=== PATIENT | male | born 1965 | race Two or more races ===

== ENCOUNTER 2020-07-28 16:42 | Emergency (ER) | payer OTHER ==
[~2020-07-28] VITALS: Ht 172.7 cm; Wt 81.0 kg
[2020-07-28 17:27] LABS: CLARITY,URINE SLIGHTLY CLOUDY (Clear); COLOR,URINE YELLOW (Yellow); GLUCOSE, URINE NEGATIVE (Neg); KETONES,URINE NEGATIVE (Neg); LEUKOCYTE ESTERASE ,URINE NEGATIVE (Neg); NITRITES, URINE NEGATIVE (Neg); OCCULT BLOOD,URINE NEGATIVE (Neg); PROTEIN,URINE 30 mg/dl (Neg); UROBILINOGEN,URINE 0.2 E.U/dL (0.2-1.0)
[2020-07-28 17:28] LABS: UA COLLECTION TYPE CLN CATCH MIDSTREAM
[2020-07-28 17:38] LABS: HYALINE CASTS 0-3 /LPF (NEGATIVE); SQUAMOUS EPITHELIAL CELL,UR FEW /LPF (FEW)
[2020-07-28 17:40] LABS: BACTERIA,URINE FEW /HPF (Neg); RBC,URINE 0-2 /HPF (0-2)
[2020-07-28 17:41] LABS: CAL OXALATE CRYSTALS 2+ /HPF (NEGATIVE); MUCUS STRANDS MANY /LPF (Neg); TRANSITIONAL EPI CELLS,URINE FEW /HPF
[2020-07-28 18:00] LABS: BASOPHILS % (AUTO) 0.4 % (0-1); EOSINOPHILS # (AUTO) 0.2 X10'3 (0-0.9); EOSINOPHILS % (AUTO) 2.7 % (0-6); HEMATOCRIT 41.9 % (42.0-52.0); HEMOGLOBIN 14.1 g/dl (14.0-17.9); LYMPHOCYTES # (AUTO) 1.6 X10'3 (1.1-4.8); LYMPHOCYTES % (AUTO) 19.4 % (21-51); MEAN CORPUSCULAR HEMOGLOBIN 32.9 PG (27.0-31.0); MEAN CORPUSCULAR HGB CONC 33.7 g/dL (33.0-36.5); MEAN CORPUSCULAR VOLUME 97.6 FL (78-98); MEAN PLATELET VOLUME 7.6 FL (7.4-10.4); MONOCYTES # (AUTO) 0.5 X10'3 (0-0.9); MONOCYTES % (AUTO) 6.5 % (2-12); NEUTROPHILS # (AUTO) 5.9 X10'3 (1.8-7.7); PLATELET COUNT 308 X10'3 (140-440); RED BLOOD COUNT 4.29 X10'6 (4.70-6.10); RED CELL DISTRIBUTION WIDTH 13.7 % (11.5-14.5); WHITE BLOOD COUNT 8.3 X10'3 (4.5-11.0)
[2020-07-28 18:21] LABS: ALANINE AMINOTRANSFERASE 23 U/L (12-78); ALBUMIN 3.7 G/DL (3.4-5.0); ALKALINE PHOSPHATASE 81 IU/L (46-116); ANION GAP 10 (8-16); ASPARTATE AMINO TRANSFERASE 16 U/L (10-37); BILIRUBIN,TOTAL 0.2 MG/DL (0.1-1.0); BLOOD UREA NITROGEN 23 MG/DL (7-18); BUN/CREATININE RATIO 28.8 (5.4-32.0); CALCIUM 8.9 MG/DL (8.5-10.1); CHLORIDE 106 MMOL/L (99-107); GLUCOSE 97 MG/DL (70-104); LIPASE 83 U/L (73-393); POTASSIUM 3.7 MMOL/L (3.5-5.1); SODIUM 144 MMOL/L (135-145); TOTAL CARBON DIOXIDE 28.2 MMOL/L (24-32); TOTAL PROTEIN 7.5 G/DL (6.4-8.2); eGFR > 90 ML/MIN
[2020-07-28] MEDS ORDERED: CefTRIAXone 250MG IM Kit w/LIDOcaine IM ONE (19:30)
[2020-07-28] MEDS ORDERED: azithromycin 250mg tablet PO ONE (19:30)
[2020-07-28] MEDS ORDERED: LEVO500T89 PO (19:38)
[2020-07-28 20:13] VITALS: BP 138/76
== END 2020-07-28 20:05 | disposition home or self-care (01) ==
LOC: ER 16:43
DX: N45.1 Epididymitis (principal); N50.812 Left testicular pain; R39.15 Urgency of urination; F17.200 Nicotine dependence, unspecified, uncomplicated; F15.90 Other stimulant use, unspecified, uncomplicated; Z72.89 Other problems related to lifestyle; Z60.2 Problems related to living alone; Z79.2 Long term (current) use of antibiotics
CPT/HCPCS: 36415; 76870; 80053; 81001; 83690; 85025; 86592; 87088; 87491; 87591; 93976; 96372; 99284; J0696

== ENCOUNTER 2020-08-26 15:04 | Emergency (ER) | payer OTHER ==
[~2020-08-26] VITALS: Ht 172.7 cm; Wt 86.4 kg
[2020-08-26] MEDS ORDERED: DOXYCYCLINE 100MG CAPSULE PO STA (17:01)
[2020-08-26] MEDS ORDERED: NAPR-56 PO (17:01)
[2020-08-26] MEDS ORDERED: DOXY150T8 PO (17:01)
[2020-08-26] MEDS ORDERED: naproxen 500mg tablet PO ONE (17:05)
[2020-08-26 17:17] LABS: CLARITY,URINE CLEAR (Clear); COLOR,URINE YELLOW (Yellow); GLUCOSE, URINE NEGATIVE (Neg); KETONES,URINE NEGATIVE (Neg); LEUKOCYTE ESTERASE ,URINE NEGATIVE (Neg); NITRITES, URINE NEGATIVE (Neg); OCCULT BLOOD,URINE SMALL (Neg); PROTEIN,URINE TRACE mg/dl (Neg); UROBILINOGEN,URINE 0.2 E.U/dL (0.2-1.0)
[2020-08-26 17:19] LABS: UA COLLECTION TYPE VOIDED
[2020-08-26 17:22] LABS: BACTERIA,URINE NONE SEEN /HPF (Neg); MUCUS STRANDS NONE SEEN /LPF (Neg); RBC,URINE 0-2 /HPF (0-2); SQUAMOUS EPITHELIAL CELL,UR NONE SEEN /LPF (FEW); WBC,URINE 0-4 /HPF (0-4)
[2020-08-26 17:23] LABS: CAL OXALATE CRYSTALS 2+ /HPF (NEGATIVE)
[2020-08-26 18:01] VITALS: BP 158/100
== END 2020-08-26 18:04 | disposition home or self-care (01) ==
LOC: ER 15:05
DX: N45.2 Orchitis (principal); F15.10 Other stimulant abuse, uncomplicated; Z79.899 Other long term (current) drug therapy
CPT/HCPCS: 76870; 81001; 93976; 99284

== ENCOUNTER 2021-11-08 15:40 | Inpatient (IN) | payer MEDICARE ==
[~2021-11-08] VITALS: Ht 175.3 cm; Wt 89.0 kg
[2021-11-08 16:33] LABS: BASOPHILS # (AUTO) 0.1 X10'3 (0-0.2); BASOPHILS % (AUTO) 1.5 % (0-1); EOSINOPHILS # (AUTO) 0.1 X10'3 (0-0.9); EOSINOPHILS % (AUTO) 0.9 % (0-6); HEMATOCRIT 38.7 % (42.0-52.0); HEMOGLOBIN 12.7 g/dl (14.0-17.9); LYMPHOCYTES # (AUTO) 1.2 X10'3 (1.1-4.8); LYMPHOCYTES % (AUTO) 13.7 % (21-51); MEAN CORPUSCULAR HEMOGLOBIN 30.8 PG (27.0-31.0); MEAN CORPUSCULAR HGB CONC 32.7 g/dL (33.0-36.5); MEAN CORPUSCULAR VOLUME 93.9 FL (78-98); MEAN PLATELET VOLUME 7.9 FL (7.4-10.4); MONOCYTES # (AUTO) 0.8 X10'3 (0-0.9); NEUTROPHILS # (AUTO) 6.7 X10'3 (1.8-7.7); NEUTROPHILS % (AUTO) 74.9 % (42-75); PLATELET COUNT 476 X10'3 (140-440); RED BLOOD COUNT 4.12 X10'6 (4.70-6.10); RED CELL DISTRIBUTION WIDTH 15.3 % (11.5-14.5)
[2021-11-08 16:46] LABS: ALANINE AMINOTRANSFERASE 26 U/L (12-78); ALBUMIN 2.2 G/DL (3.4-5.0); ALBUMIN/GLOBULIN RATIO 0.4 (1.1-1.5); ALKALINE PHOSPHATASE 102 IU/L (46-116); ANION GAP 7 (8-16); ASPARTATE AMINO TRANSFERASE 26 U/L (10-37); BILIRUBIN,TOTAL 0.5 MG/DL (0.1-1.0); BLOOD UREA NITROGEN 26 MG/DL (7-18); BUN/CREATININE RATIO 21.1 (5.4-32.0); CALCIUM 8.6 MG/DL (8.5-10.1); CHLORIDE 104 MMOL/L (99-107); CREATININE 1.23 MG/DL (0.60-1.10); GLUCOSE 161 MG/DL (70-104); POTASSIUM 3.6 MMOL/L (3.5-5.1); SODIUM 138 MMOL/L (135-145); eGFR 61 ML/MIN
[2021-11-08] MEDS ORDERED: furosemide 10 MG/1 ML 10ml inj IV ONE (18:15)
[2021-11-08] MEDS ORDERED: CefTRIAXone 2gm/D5W 50ml BAG 50 ML IV ONE (18:25)
[2021-11-08] MEDS ORDERED: normal saline 1000ML IV soln IV ONE (18:25)
--- NOTE | 2021-11-08 19:17 | NUR ---
consulted dr welsh regarding harris order. pt is able to get up to restroom and urinate well. per dr welsh, ok to d/c the harris order.
[2021-11-08 19:24] LABS: CLARITY,URINE SLIGHTLY CLOUDY (Clear); GLUCOSE, URINE 100 mg/dl (Neg); KETONES,URINE TRACE mg/dl (Neg); LEUKOCYTE ESTERASE ,URINE NEGATIVE (Neg); NITRITES, URINE NEGATIVE (Neg); OCCULT BLOOD,URINE NEGATIVE (Neg); PROTEIN,URINE 100 mg/dl (Neg); UROBILINOGEN,URINE >=8.0 E.U/dL (0.2-1.0)
[2021-11-08 19:30] LABS: COLOR,URINE DARK YELLOW (Yellow); UA COLLECTION TYPE CLN CATCH MIDSTREAM
[2021-11-08 19:33] LABS: MUCUS STRANDS MANY /LPF (Neg); SQUAMOUS EPITHELIAL CELL,UR FEW /LPF (FEW)
[2021-11-08 19:38] LABS: RENAL CELLS, URINE FEW /HPF
[2021-11-08 19:39] LABS: BACTERIA,URINE FEW /HPF (Neg); RBC,URINE 0-2 /HPF (0-2)
[2021-11-08] MEDS ORDERED: potassium CL 10mEq/100ml bag 100 ML IV PRN (21:35)
[2021-11-08] MEDS ORDERED: ondansetron/PF 4mg/2ml inj IV PRN (21:35)
[2021-11-08] MEDS ORDERED: magnesium 4gm in 100ml NS 100 ML IV PRN (21:35)
[2021-11-08] MEDS ORDERED: magnesium 2GM in 50ml NS 50 ML IV PRN (21:35)
[2021-11-08] MEDS ORDERED: potassium Cl 20 mEq SR tablet PO PRN ×2 (21:35)
[2021-11-08] MEDS ORDERED: magnesium Cl slow-release 64mg tablet PO PRN (21:35)
[2021-11-08] MEDS ORDERED: PERFLUTREN PROTEIN-A MICROSPHR (Optison) 0.22 MG/ML 3ML VIAL IV PRN (21:35)
[2021-11-08] MEDS ORDERED: ondansetron 4mg rapidly disintigrating tab PO PRN (21:35)
--- NOTE | 2021-11-08 21:51 | NUR ---
After Dr Carey left room, patient stated that he changed his mind about not wanting to be intubated as he had told Dr carey. Pt states he wants to be a full code. Kris notified.
[2021-11-08] MEDS ORDERED: vancomycin/NS 1 GM ADD-VANTAGE 250 ML IV ONE (21:55)
[2021-11-08] MEDS ORDERED: ipratropium/albuterol 3ml nebule NEB PRN (22:05)
[2021-11-09] VITALS (8 sets, daily range): BP systolic 104–125; BP diastolic 56–86
[2021-11-09] MEDS ORDERED: NO HOME MEDS (02:11)
[2021-11-09] MEDS: acetaminophen 325mg tablet PO PRN ×3 (05:54→23:39)
--- NOTE | 2021-11-09 06:03 | NUR ---
PT RECEIVED FROM ED VIA [facility], PT HAS NO MEDICAL HISTORY. NO ACUTE DISTRESS NOTED AT THIS TIME. RESP ARE LABORED. PT. CURRENTLY ON HIGH FLOW BNC @ 15L/M. NO COMPLAINTS AT THIS TIME, CALL LIGHT WITHIN REACH.
[2021-11-09 06:18] LABS: BASOPHILS # (AUTO) 0.1 X10'3 (0-0.2); BASOPHILS % (AUTO) 0.8 % (0-1); EOSINOPHILS # (AUTO) 0.2 X10'3 (0-0.9); EOSINOPHILS % (AUTO) 1.8 % (0-6); HEMATOCRIT 36.2 % (42.0-52.0); HEMOGLOBIN 11.7 g/dl (14.0-17.9); LYMPHOCYTES % (AUTO) 10.2 % (21-51); MEAN CORPUSCULAR HEMOGLOBIN 30.6 PG (27.0-31.0); MEAN CORPUSCULAR HGB CONC 32.3 g/dL (33.0-36.5); MEAN CORPUSCULAR VOLUME 94.5 FL (78-98); MEAN PLATELET VOLUME 8.2 FL (7.4-10.4); MONOCYTES # (AUTO) 0.8 X10'3 (0-0.9); MONOCYTES % (AUTO) 8.3 % (2-12); NEUTROPHILS # (AUTO) 7.9 X10'3 (1.8-7.7); NEUTROPHILS % (AUTO) 78.9 % (42-75); PLATELET COUNT 432 X10'3 (140-440); RED BLOOD COUNT 3.83 X10'6 (4.70-6.10); RED CELL DISTRIBUTION WIDTH 15.2 % (11.5-14.5)
[2021-11-09 06:36] LABS: ANION GAP 8 (8-16); BLOOD UREA NITROGEN 18 MG/DL (7-18); BUN/CREATININE RATIO 31.6 (5.4-32.0); CALCIUM 7.7 MG/DL (8.5-10.1); CHLORIDE 108 MMOL/L (99-107); CREATININE 0.57 MG/DL (0.60-1.10); GLUCOSE 93 MG/DL (70-104); MAGNESIUM 2.4 MG/DL (1.5-2.4); SODIUM 141 MMOL/L (135-145); TOTAL CARBON DIOXIDE 25.5 MMOL/L (24-32); eGFR > 90 ML/MIN
[2021-11-09] MEDS: K and/or MAG REPLACEMENT MC SCH ×3 (08:00→20:00)
[2021-11-09] MEDS: guaiFENesin ER 600mg tablet PO SCH ×2 (08:00→19:31)
[2021-11-09] MEDS ORDERED: VANCOMYCIN 1GM/200ML IVPB 200 ML IV SCH (08:00)
[2021-11-09] MEDS ORDERED: azithromycin/NS 500mg/250ml 250 ML IV ONE (09:45)
[2021-11-09] MEDS: piperacillin/tazo 3.375gm/50ml 50 ML IV SCH ×2 (10:33→16:51)
[2021-11-09 10:38] LABS: ABG BASE EXCESS 4.9 mmol/L (-2.0-2.0); ABG HCO3 30.3 mmol/L (22.0-26.0); ABG OXYGEN SATURATION 89.7 % (94-97); ABG PCO2 (T) 48.2 mmHg (35.0-48.0); ABG PO2 (T) 58.8 mmHg (75.0-100.0); ALLEN'S TEST POSITIVE; FCOHb 0.7 % (0.0-3.9); FLOW 15 L/min; FMetHb 0.3 % (0.0-1.5); FO2Hb 88.8 % (94-97); TOTAL HEMOGLOBIN 12.4 G/dl (14.0-18.0)
[2021-11-09 10:51] LABS: APTT 26 SECONDS (22-32)
[2021-11-09] MEDS ORDERED: iohexol 350MG/ML 100ml bottle IV ONE (11:42)
[2021-11-09] MEDS ORDERED: heparin 10,000 units/1 ML INJ IV ONE (16:00)
[2021-11-09] MEDS: heparin 25,000 UNIT/250ml bag 250 ML IV SCH (16:59)
[2021-11-09] MEDS: VANCOmycin 1250MG/NS 250ml Bag 250 ML IV SCH (19:40)
[2021-11-09 23:15] LABS: APTT 27 SECONDS (22-32)
[2021-11-10] VITALS (8 sets, daily range): BP systolic 110–126; BP diastolic 50–79
[2021-11-10] MEDS: heparin 10,000 units/1 ML INJ IV PRN ×2 (01:20→10:54)
[2021-11-10] MEDS: piperacillin/tazo 3.375gm/50ml 50 ML IV SCH ×3 (03:17→17:27)
[2021-11-10] MEDS: K and/or MAG REPLACEMENT MC SCH ×2 (08:00→20:00)
[2021-11-10] MEDS: guaiFENesin ER 600mg tablet PO SCH ×2 (08:10→19:14)
[2021-11-10] MEDS: heparin 25,000 UNIT/250ml bag 250 ML IV SCH (08:10)
[2021-11-10] MEDS: azithromycin/NS 500mg/250ml 250 ML IV SCH (08:55)
[2021-11-10 09:52] LABS: BASOPHILS % (AUTO) 0.5 % (0-1); EOSINOPHILS # (AUTO) 0.3 X10'3 (0-0.9); EOSINOPHILS % (AUTO) 3.1 % (0-6); HEMATOCRIT 36.4 % (42.0-52.0); HEMOGLOBIN 11.6 g/dl (14.0-17.9); LYMPHOCYTES # (AUTO) 1.1 X10'3 (1.1-4.8); LYMPHOCYTES % (AUTO) 12.5 % (21-51); MEAN CORPUSCULAR HEMOGLOBIN 30.1 PG (27.0-31.0); MEAN CORPUSCULAR HGB CONC 31.8 g/dL (33.0-36.5); MEAN CORPUSCULAR VOLUME 94.6 FL (78-98); MEAN PLATELET VOLUME 8.2 FL (7.4-10.4); MONOCYTES # (AUTO) 0.6 X10'3 (0-0.9); MONOCYTES % (AUTO) 6.5 % (2-12); NEUTROPHILS # (AUTO) 6.8 X10'3 (1.8-7.7); NEUTROPHILS % (AUTO) 77.4 % (42-75); PLATELET COUNT 409 X10'3 (140-440); RED BLOOD COUNT 3.85 X10'6 (4.70-6.10); RED CELL DISTRIBUTION WIDTH 15.8 % (11.5-14.5); WHITE BLOOD COUNT 8.8 X10'3 (4.5-11.0)
[2021-11-10 10:22] LABS: ALBUMIN 1.9 G/DL (3.4-5.0); ANION GAP 8 (8-16); BLOOD UREA NITROGEN 9 MG/DL (7-18); CHLORIDE 104 MMOL/L (99-107); CREATININE 0.69 MG/DL (0.60-1.10); GLUCOSE 107 MG/DL (70-104); MAGNESIUM 2.1 MG/DL (1.5-2.4); POTASSIUM 4.2 MMOL/L (3.5-5.1); SODIUM 143 MMOL/L (135-145); TOTAL CARBON DIOXIDE 31.3 MMOL/L (24-32); eGFR > 90 ML/MIN
[2021-11-10] MEDS: VANCOmycin 1250MG/NS 250ml Bag 250 ML IV SCH ×2 (10:56→19:15)
[2021-11-10] MEDS: acetaminophen 325mg tablet PO PRN ×2 (12:51→19:33)
[2021-11-10] MEDS ORDERED: ipratropium/albuterol 3ml nebule NEB PRN (14:35)
[2021-11-10] MEDS ORDERED: methylPREDNISolone sod succ 125mg/2ml vial IV ONE (14:35)
[2021-11-10] MEDS: guaiFENesin/DM 10ml UD oral syrup PO PRN (16:14)
[2021-11-10] MEDS: ipratropium/albuterol 3ml nebule NEB SCH ×2 (16:18→20:30)
[2021-11-10] MEDS: methylPREDNISolone sod succ 125mg/2ml vial IV SCH (19:15)
[2021-11-11] VITALS (8 sets, daily range): BP systolic 115–137; BP diastolic 61–84
[2021-11-11] MEDS: ipratropium/albuterol 3ml nebule NEB SCH ×6 (00:15→20:56)
--- NOTE | 2021-11-11 01:34 | NUR ---
LAB JUST CALLED TO NOTIFIED THAT BLOOD IS HEMOLYZED. WAITING FOR ANOTHER LAB RESULT.
[2021-11-11] MEDS: heparin 10,000 units/1 ML INJ IV PRN (02:46)
[2021-11-11] MEDS: heparin 25,000 UNIT/250ml bag 250 ML IV SCH ×2 (02:49→13:01)
[2021-11-11] MEDS: methylPREDNISolone sod succ 125mg/2ml vial IV SCH ×4 (02:58→19:28)
[2021-11-11] MEDS: guaiFENesin/DM 10ml UD oral syrup PO PRN ×2 (06:00→15:52)
[2021-11-11] MEDS ORDERED: VANCOMYCIN LEVEL IV ONE (07:30)
[2021-11-11] MEDS: K and/or MAG REPLACEMENT MC SCH ×2 (08:00→20:00)
[2021-11-11 08:12] LABS: BASOPHILS % (AUTO) 0.2 % (0-1); EOSINOPHILS % (AUTO) 0 % (0-6); HEMOGLOBIN 12.2 g/dl (14.0-17.9); LYMPHOCYTES # (AUTO) 0.7 X10'3 (1.1-4.8); LYMPHOCYTES % (AUTO) 7.7 % (21-51); MEAN CORPUSCULAR HEMOGLOBIN 30.5 PG (27.0-31.0); MEAN CORPUSCULAR HGB CONC 32.9 g/dL (33.0-36.5); MEAN CORPUSCULAR VOLUME 92.8 FL (78-98); MEAN PLATELET VOLUME 8.1 FL (7.4-10.4); MONOCYTES # (AUTO) 0.2 X10'3 (0-0.9); MONOCYTES % (AUTO) 1.6 % (2-12); NEUTROPHILS # (AUTO) 8.7 X10'3 (1.8-7.7); NEUTROPHILS % (AUTO) 90.5 % (42-75); PLATELET COUNT 439 X10'3 (140-440); RED BLOOD COUNT 3.99 X10'6 (4.70-6.10); RED CELL DISTRIBUTION WIDTH 15.2 % (11.5-14.5); WHITE BLOOD COUNT 9.6 X10'3 (4.5-11.0)
[2021-11-11] MEDS: guaiFENesin ER 600mg tablet PO SCH ×2 (08:25→19:28)
[2021-11-11] MEDS: azithromycin/NS 500mg/250ml 250 ML IV SCH (08:25)
[2021-11-11] MEDS: VANCOmycin 1250MG/NS 250ml Bag 250 ML IV SCH (08:49)
[2021-11-11 09:02] LABS: APTT 48 SECONDS (22-32)
[2021-11-11 09:15] LABS: ANION GAP 5 (8-16); BLOOD UREA NITROGEN 12 MG/DL (7-18); BUN/CREATININE RATIO 21.1 (5.4-32.0); CALCIUM 8.5 MG/DL (8.5-10.1); CHLORIDE 104 MMOL/L (99-107); CREATININE 0.57 MG/DL (0.60-1.10); GLUCOSE 155 MG/DL (70-104); MAGNESIUM 2.5 MG/DL (1.5-2.4); POTASSIUM 4.4 MMOL/L (3.5-5.1); SODIUM 140 MMOL/L (135-145); TOTAL CARBON DIOXIDE 30.7 MMOL/L (24-32); VANCOMYCIN,TROUGH 6.8 UG/ML (6.0-14.0); eGFR > 90 ML/MIN
[2021-11-11] MEDS: acetaminophen 325mg tablet PO PRN (12:45)
[2021-11-11] MEDS: piperacillin/tazo 3.375gm/50ml 50 ML IV SCH ×3 (12:49→16:00)
[2021-11-11] MEDS: VANCOMYCIN 1GM/200ML IVPB 200 ML IV SCH (15:51)
--- NOTE | 2021-11-11 20:58 | NUR ---
ZOSYN WAS NOT ADMINISTERED AT 1600.SO THE NEXT DOSE WILL BE AT MIDNIGHT. PHARMACY NOTIFIED.
[2021-11-12] VITALS (8 sets, daily range): BP systolic 108–136; BP diastolic 57–79
[2021-11-12] MEDS: ipratropium/albuterol 3ml nebule NEB SCH ×6 (00:07→23:00)
[2021-11-12 00:48] LABS: APTT 31 SECONDS (22-32)
[2021-11-12] MEDS: heparin 10,000 units/1 ML INJ IV PRN (01:22)
[2021-11-12] MEDS: heparin 25,000 UNIT/250ml bag 250 ML IV SCH ×2 (01:31→11:48)
[2021-11-12] MEDS: acetaminophen 325mg tablet PO PRN ×3 (01:41→17:41)
--- NOTE | 2021-11-12 01:50 | NUR ---
PTT CAME BACK 31. HEPARIN WAS 2700ML/HR. SO I INCREASED IT TO FOR. NOW IT SUPPOSE TO BE 31OOML/HR. THE PUMP DOES NOT ALLOW IT TO GO HIGHER THAT 3000ML/HR. ACTUALLY THE HEPARIN IS RUNNING AT 3000ML/HR. CHARGE NURSE KOBI NOTIFIED.
[2021-11-12] MEDS: methylPREDNISolone sod succ 125mg/2ml vial IV SCH ×4 (02:00→19:54)
--- NOTE | 2021-11-12 02:00 | NUR ---
VANCO WAS NOT ADMINISTER YET. WAITING FOR ZOSYN TO FINISH AND VANCO WILL BE ADMINISTERED.
[2021-11-12] MEDS ORDERED: VANCOMYCIN LEVEL IV ONE (07:30)
[2021-11-12] MEDS: K and/or MAG REPLACEMENT MC SCH ×2 (08:00→20:00)
[2021-11-12] MEDS: guaiFENesin ER 600mg tablet PO SCH ×2 (09:21→19:53)
[2021-11-12] MEDS: piperacillin/tazo 3.375gm/50ml 50 ML IV SCH ×3 (09:21→15:49)
[2021-11-12] MEDS: azithromycin/NS 500mg/250ml 250 ML IV SCH (10:02)
[2021-11-12 10:40] LABS: BASOPHILS % (AUTO) 0.2 % (0-1); EOSINOPHILS % (AUTO) 0 % (0-6); HEMATOCRIT 36.7 % (42.0-52.0); HEMOGLOBIN 11.7 g/dl (14.0-17.9); LYMPHOCYTES # (AUTO) 1.6 X10'3 (1.1-4.8); LYMPHOCYTES % (AUTO) 8.6 % (21-51); MEAN CORPUSCULAR HEMOGLOBIN 29.6 PG (27.0-31.0); MEAN CORPUSCULAR HGB CONC 31.8 g/dL (33.0-36.5); MEAN PLATELET VOLUME 8.8 FL (7.4-10.4); MONOCYTES # (AUTO) 0.9 X10'3 (0-0.9); NEUTROPHILS # (AUTO) 15.7 X10'3 (1.8-7.7); NEUTROPHILS % (AUTO) 86.2 % (42-75); PLATELET COUNT 451 X10'3 (140-440); RED BLOOD COUNT 3.94 X10'6 (4.70-6.10); RED CELL DISTRIBUTION WIDTH 15.6 % (11.5-14.5); WHITE BLOOD COUNT 18.2 X10'3 (4.5-11.0)
[2021-11-12 10:49] LABS: APTT 64 SECONDS (22-32)
[2021-11-12 11:11] LABS: ANION GAP 4 (8-16); BLOOD UREA NITROGEN 16 MG/DL (7-18); BUN/CREATININE RATIO 23.2 (5.4-32.0); CALCIUM 8.5 MG/DL (8.5-10.1); CHLORIDE 104 MMOL/L (99-107); CREATININE 0.69 MG/DL (0.60-1.10); GLUCOSE 155 MG/DL (70-104); MAGNESIUM 2.2 MG/DL (1.5-2.4); POTASSIUM 3.5 MMOL/L (3.5-5.1); SODIUM 140 MMOL/L (135-145); TOTAL CARBON DIOXIDE 31.8 MMOL/L (24-32); VANCOMYCIN,TROUGH 4.2 UG/ML (6.0-14.0); eGFR > 90 ML/MIN
[2021-11-12] MEDS: VANCOMYCIN 1GM/200ML IVPB 200 ML IV SCH ×3 (11:41→20:00)
--- NOTE | 2021-11-12 18:10 | NUR ---
This is Enma RN taking care of patient in room 3028B. the patient is complaining of nerve pain that he has and takes gabapentin for. The gabapentin helps him. Can we order gabapentin please. EXT [id number].
--- NOTE | 2021-11-12 23:23 | NUR ---
Vanco was not administered. Pharmacy never sent medication. Called them multiple time no answer.
[2021-11-13] VITALS (8 sets, daily range): BP systolic 119–156; BP diastolic 75–91
[2021-11-13] MEDS: piperacillin/tazo 3.375gm/50ml 50 ML IV SCH ×3 (00:47→15:33)
[2021-11-13 01:18] LABS: APTT 27 SECONDS (22-32)
--- NOTE | 2021-11-13 01:54 | NUR ---
PAGER ID: [phone] MESSAGE: Moe Anderson I have pt Mohamud Vivar in room. 3028b. Ptt is 27. He was already on 3000/ml. The pump cannot go higher than 3000unit/hr. I really do not know what to do because per protocol I have to increase it to 4 unit. Ext [phone] Radha BALBUENA
--- NOTE | 2021-11-13 01:56 | NUR ---
DR Rueda called back for pt Cb Mallory. No change for the heparin.
[2021-11-13] MEDS: methylPREDNISolone sod succ 125mg/2ml vial IV SCH ×4 (02:01→19:39)
[2021-11-13] MEDS: guaiFENesin/DM 10ml UD oral syrup PO PRN ×2 (02:39→19:36)
[2021-11-13] MEDS: ipratropium/albuterol 3ml nebule NEB SCH ×5 (02:45→22:51)
[2021-11-13] MEDS: VANCOMYCIN 1GM/200ML IVPB 200 ML IV SCH ×2 (04:01→12:29)
[2021-11-13] MEDS: heparin 25,000 UNIT/250ml bag 250 ML IV SCH (05:00)
[2021-11-13] MEDS: heparin 10,000 units/1 ML INJ IV PRN ×2 (05:01→09:17)
[2021-11-13] MEDS: K and/or MAG REPLACEMENT MC SCH ×2 (08:00→20:00)
[2021-11-13] MEDS: guaiFENesin ER 600mg tablet PO SCH ×2 (08:24→19:39)
[2021-11-13] MEDS: gabapentin 100mg capsule PO SCH ×3 (08:24→20:36)
[2021-11-13 08:32] LABS: BASOPHILS # (AUTO) 0.1 X10'3 (0-0.2); BASOPHILS % (AUTO) 0.6 % (0-1); EOSINOPHILS % (AUTO) 0 % (0-6); HEMATOCRIT 36.5 % (42.0-52.0); LYMPHOCYTES # (AUTO) 0.7 X10'3 (1.1-4.8); LYMPHOCYTES % (AUTO) 4.5 % (21-51); MEAN CORPUSCULAR HEMOGLOBIN 30.3 PG (27.0-31.0); MEAN CORPUSCULAR HGB CONC 32.9 g/dL (33.0-36.5); MEAN PLATELET VOLUME 8.5 FL (7.4-10.4); MONOCYTES # (AUTO) 0.6 X10'3 (0-0.9); MONOCYTES % (AUTO) 4.1 % (2-12); NEUTROPHILS # (AUTO) 14.2 X10'3 (1.8-7.7); NEUTROPHILS % (AUTO) 90.8 % (42-75); PLATELET COUNT 511 X10'3 (140-440); RED BLOOD COUNT 3.97 X10'6 (4.70-6.10); RED CELL DISTRIBUTION WIDTH 15.4 % (11.5-14.5); WHITE BLOOD COUNT 15.7 X10'3 (4.5-11.0)
[2021-11-13 08:34] LABS: ALBUMIN 2.2 G/DL (3.4-5.0); ANION GAP 7 (8-16); BLOOD UREA NITROGEN 16 MG/DL (7-18); BUN/CREATININE RATIO 27.6 (5.4-32.0); CALCIUM 8.5 MG/DL (8.5-10.1); CHLORIDE 103 MMOL/L (99-107); CREATININE 0.58 MG/DL (0.60-1.10); GLUCOSE 134 MG/DL (70-104); SODIUM 141 MMOL/L (135-145); TOTAL CARBON DIOXIDE 30.7 MMOL/L (24-32); eGFR > 90 ML/MIN
[2021-11-13 08:35] LABS: APTT 42 SECONDS (22-32)
[2021-11-13] MEDS: azithromycin/NS 500mg/250ml 250 ML IV SCH (08:48)
--- NOTE | 2021-11-13 09:53 | NUR ---
Initial: Pt admitted w/ acute respiratory failure and bilateral PNA per EMR; currently on 30L high flow salter and non rebreather mask per documentation. Pt on Regular diet w/ 100% intake of meals meeting nutrient needs at this time. LBM 11/12. No nutrition intervention implemented at this time, will continue to monitor. Recs: 1. Continue Regular diet as tolerated 2. Bowel caer per rx 3. Weekly wts Addendum: 11/13/21 at [address] Amended: Links added.
[2021-11-13] MEDS ORDERED: VANCOMYCIN LEVEL IV ONE (11:30)
--- NOTE | 2021-11-13 18:22 | NUR ---
Problems reprioritized. Patient report given, questions answered & plan of care reviewed with Radha BALBUENA.
[2021-11-13] MEDS: enoxaparin 30mg/0.3ml syringe SUBCUT SCH (19:38)
[2021-11-13] MEDS: enoxaparin 60mg/0.6ml syringe SUBCUT SCH (19:38)
[2021-11-13] MEDS: vancomycin 1,750 MG in NS 350ml IV soln IV SCH (19:55)
[2021-11-14] MEDS: piperacillin/tazo 3.375gm/50ml 50 ML IV SCH ×3 (00:15→16:05)
[2021-11-14 02:00] VITALS: BP 132/81
[2021-11-14] MEDS: methylPREDNISolone sod succ 125mg/2ml vial IV SCH ×4 (02:23→19:28)
[2021-11-14] MEDS: ipratropium/albuterol 3ml nebule NEB SCH ×6 (03:02→22:46)
[2021-11-14 06:00] VITALS: BP 136/80
[2021-11-14] MEDS: K and/or MAG REPLACEMENT MC SCH ×2 (08:00→20:00)
[2021-11-14] MEDS: azithromycin 250mg tablet PO SCH (08:30)
[2021-11-14] MEDS: gabapentin 100mg capsule PO SCH ×3 (08:30→19:28)
[2021-11-14] MEDS: vancomycin 1,750 MG in NS 350ml IV soln IV SCH ×2 (08:30→20:00)
[2021-11-14] MEDS: guaiFENesin ER 600mg tablet PO SCH ×2 (08:30→19:28)
[2021-11-14] MEDS: enoxaparin 60mg/0.6ml syringe SUBCUT SCH ×2 (08:31→19:29)
[2021-11-14] MEDS: enoxaparin 30mg/0.3ml syringe SUBCUT SCH ×2 (08:31→19:29)
[2021-11-14 09:39] LABS: BASOPHILS # (AUTO) 0.1 X10'3 (0-0.2); BASOPHILS % (AUTO) 0.7 % (0-1); EOSINOPHILS % (AUTO) 0 % (0-6); HEMOGLOBIN 11.9 g/dl (14.0-17.9); LYMPHOCYTES # (AUTO) 1.9 X10'3 (1.1-4.8); LYMPHOCYTES % (AUTO) 12.8 % (21-51); MEAN CORPUSCULAR HEMOGLOBIN 29.7 PG (27.0-31.0); MEAN CORPUSCULAR HGB CONC 32.3 g/dL (33.0-36.5); MEAN PLATELET VOLUME 8.7 FL (7.4-10.4); MONOCYTES % (AUTO) 6.6 % (2-12); NEUTROPHILS # (AUTO) 12.1 X10'3 (1.8-7.7); NEUTROPHILS % (AUTO) 79.9 % (42-75); PLATELET COUNT 532 X10'3 (140-440); RED BLOOD COUNT 4.02 X10'6 (4.70-6.10); RED CELL DISTRIBUTION WIDTH 15.9 % (11.5-14.5); WHITE BLOOD COUNT 15.1 X10'3 (4.5-11.0)
[2021-11-14 10:16] LABS: ALANINE AMINOTRANSFERASE 45 U/L (12-78); ALBUMIN 2.1 G/DL (3.4-5.0); ALBUMIN/GLOBULIN RATIO 0.5 (1.1-1.5); ANION GAP 5 (8-16); ASPARTATE AMINO TRANSFERASE 19 U/L (10-37); BILIRUBIN,TOTAL 0.5 MG/DL (0.1-1.0); BLOOD UREA NITROGEN 14 MG/DL (7-18); BUN/CREATININE RATIO 26.9 (5.4-32.0); CALCIUM 8.4 MG/DL (8.5-10.1); CHLORIDE 104 MMOL/L (99-107); CREATININE 0.52 MG/DL (0.60-1.10); GLUCOSE 131 MG/DL (70-104); POTASSIUM 4.2 MMOL/L (3.5-5.1); SODIUM 141 MMOL/L (135-145); TOTAL CARBON DIOXIDE 32.2 MMOL/L (24-32); TOTAL PROTEIN 6.4 G/DL (6.4-8.2); eGFR > 90 ML/MIN
[2021-11-14 11:00] VITALS: BP 147/80
--- NOTE | 2021-11-14 11:00 | NUR ---
patient keeps on taking his non-rebreather mask off in rushing to be discharged, O2 sats at low 70's when this RN came to the room to get his vital signs, strongly advised no not take his non-rebreather mask off whenever he feels like it just to balderrama himself for discharge. Oxygen saturations slowly came back up to high 80's. patient verbally agrees to the said plan. will continue to monitor patient.
[2021-11-14 11:14] LABS: ALKALINE PHOSPHATASE 89 IU/L (46-116)
[2021-11-14] MEDS: guaiFENesin/DM 10ml UD oral syrup PO PRN ×2 (12:12→19:28)
--- NOTE | 2021-11-14 13:51 | NUR ---
Paged Dr. Almanzar for Anna RN regarding patient wanting to leave AMA and asking for anxiety medication. PAGER ID: [phone] MESSAGE: [phone], Cb Mallory. Patient trying to leave AMA, says hes claustrophobic and room closing in, he said he wants something for anxiety. Can we get something for anxiety? Anna U [id number].
--- NOTE | 2021-11-14 14:05 | NUR ---
This RN walked in to the patient room with the rescue nurse saying that the patient signed AMA form and that patient is leaving. Patient was already dressed up to his usual clothes, tele box unattached to patient, iv tubings were disconnected, blood back flows present to the lower half of the iv tubings, patient holding his non-rebreather mask over his nose while asking me that he needs to leave because he is claustrophobic, high flow nasal cannula on the floor, pt keeps on apologizing why he needs to go out and have fresh air. Explained to patient why he needed the oxygen and how much oxygen he is currently requiring and the big possiblity of what will happen the moment he step out of the hospital premises with no oxygen at all, patient decided to stay and wants to have something to knock him down so he cant think of being claustrophic. patient getting blue and short of breath while he was explaining. patient let this RN hook him again with the tele monitor and changed iv tubing, and hooked him back to high flow nasal cannula and nonrebreather mask both at 15L. As this RN left the room patient was calm and saturating 90%. will continue to monitor patient.
[2021-11-14 15:00] VITALS: BP 130/83
[2021-11-14 18:00] VITALS: BP 127/76
--- NOTE | 2021-11-14 18:39 | NUR ---
called report to Olga, all questions answered. patient miner pick time at 1930. will endorse to incoming RN until picked up.
--- NOTE | 2021-11-14 20:00 | NUR ---
PT DID NOT GO TO [facility] DUE TO CHANGING CONDITION. O2 SAT WAS DROPPING TO 82%. RIGHT NOW PT IS ON BIPAP AND SATURATING 92%. PARAKEET RAISER NOTIFIED AND CHARGE NURSE IS AWARE.
--- NOTE | 2021-11-14 20:00 | NUR ---
PAGER ID: [phone] MESSAGE: Good evening My name is Radha and working at [facility]. I have pt Mohamud Vivar in room 3028B. is O2 sat is going down to 82. Respiratory mention that they need an order for Bipab. Can I put the order? Radha BALBUENA
[2021-11-14 22:00] VITALS: BP 128/79
--- NOTE | 2021-11-14 22:23 | NUR ---
PT KEEP TAKING BIPAP OFF. OXYGEN KEEP DROPPING TO 84%. PT EDUCATED ABOUT CONSEQUENCES BUT STILL DO NOT LISTEN.
--- NOTE | 2021-11-14 22:46 | NUR ---
PAGER ID: [phone] MESSAGE: GOOD EVENING I'M AT [facility].I HAVE PT NAME MAGY KELLY IN ROOM 3024B THAT NEED A SLEEPING PILL.CAN I PUT AN ORDER FOR RESTORIL? NAPOLEON BALBUENA EX [id number]
[2021-11-14] MEDS ORDERED: temazepam 15mg capsule PO ONE (23:35)
[2021-11-15] VITALS (16 sets, daily range): BP systolic 76–159; BP diastolic 46–82
--- NOTE | 2021-11-15 00:05 | NUR ---
PAGER ID: [phone] MESSAGE: [facility] does have Ativan Im available. Radha BALBUENA pcu 3
[2021-11-15] MEDS ORDERED: LORazepam 2 mg/ml vial IM ONE ×2 (00:15→05:20)
--- NOTE | 2021-11-15 00:58 | NUR ---
Medication cannot administered. pt doesn't have iv and is very combative.
[2021-11-15] MEDS: methylPREDNISolone sod succ 125mg/2ml vial IV SCH ×4 (02:00→20:23)
--- NOTE | 2021-11-15 05:13 | NUR ---
PAGER ID: [phone] MESSAGE: Good mng Dr. Bermudez'm from [facility]. Pt Mohamud Vivar in room 3028 b is really combative. Even with restrain. Pt mention that he does not care if he he needs to go AMA. Radha Temlpe
--- NOTE | 2021-11-15 05:14 | NUR ---
GAMAL KELLY IS VERY COMBATIVE AND WANTED TO LEAVE AMA. DR MANAGER STUDIO IS AWARE.
--- NOTE | 2021-11-15 05:15 | NUR ---
PUBLICATIONS INSPECTOR ORDER 2MG OF ATIVAN.
[2021-11-15] MEDS: K and/or MAG REPLACEMENT MC SCH ×2 (06:30→08:00)
--- NOTE | 2021-11-15 06:50 | NUR ---
Patient in room PCU 3028B. I have received report from Radha and had the opportunity to ask questions and assume patient care.
[2021-11-15] MEDS: ipratropium/albuterol 3ml nebule NEB SCH ×5 (07:02→23:11)
--- NOTE | 2021-11-15 07:06 | NUR ---
Msg to Dr. GONZALEZ PAGER ID: [phone] MESSAGE: Pt Evelio mcfarlane rm 328B is combative. On bipap wants it off, he has restraints from last night and a sitter, they gave him Ativan last night and it didn't work. His O2 drops to 50 and 60s when mask not on. Can we get Haldol? [facility] 5894
[2021-11-15] MEDS ORDERED: VANCOMYCIN LEVEL IV ONE (07:30)
[2021-11-15] MEDS: guaiFENesin ER 600mg tablet PO SCH ×2 (08:00→20:00)
[2021-11-15] MEDS: azithromycin 250mg tablet PO SCH (08:00)
[2021-11-15] MEDS: gabapentin 100mg capsule PO SCH ×3 (08:00→20:25)
[2021-11-15] MEDS ORDERED: LORazepam 2 mg/ml vial IV ONE (08:25)
--- NOTE | 2021-11-15 08:25 | NUR ---
Resource SREE Ojeda to place ativan 2mg IV per Dr. Almanzar telephone order for patient agitation. Order placed for primary RN Tish. Ojeda U
[2021-11-15] MEDS ORDERED: haloperidol lactate 5mg/ml inj ONE (08:33)
[2021-11-15] MEDS ORDERED: haloperidol lactate 5mg/ml inj IM ONE (08:35)
[2021-11-15] MEDS ORDERED: diphenhydrAMINE 50 mg/ml inj ONE (08:43)
[2021-11-15] MEDS ORDERED: diphenhydrAMINE 50 mg/ml inj IM ONE (08:50)
[2021-11-15 08:53] LABS: BASOPHILS # (AUTO) 0.1 X10'3 (0-0.2); BASOPHILS % (AUTO) 0.6 % (0-1); EOSINOPHILS % (AUTO) 0.2 % (0-6); HEMATOCRIT 40.7 % (42.0-52.0); LYMPHOCYTES # (AUTO) 1.9 X10'3 (1.1-4.8); MEAN CORPUSCULAR HEMOGLOBIN 29.6 PG (27.0-31.0); MEAN CORPUSCULAR HGB CONC 31.9 g/dL (33.0-36.5); MEAN CORPUSCULAR VOLUME 92.8 FL (78-98); MONOCYTES # (AUTO) 1.1 X10'3 (0-0.9); MONOCYTES % (AUTO) 6.5 % (2-12); NEUTROPHILS % (AUTO) 81.7 % (42-75); PLATELET COUNT 589 X10'3 (140-440); RED BLOOD COUNT 4.39 X10'6 (4.70-6.10); WHITE BLOOD COUNT 17.1 X10'3 (4.5-11.0)
[2021-11-15 08:56] LABS: ALANINE AMINOTRANSFERASE 45 U/L (12-78); ALBUMIN 2.4 G/DL (3.4-5.0); ALBUMIN/GLOBULIN RATIO 0.5 (1.1-1.5); ASPARTATE AMINO TRANSFERASE 33 U/L (10-37); BILIRUBIN,TOTAL 0.6 MG/DL (0.1-1.0); BLOOD UREA NITROGEN 16 MG/DL (7-18); CALCIUM 8.7 MG/DL (8.5-10.1); CHLORIDE 100 MMOL/L (99-107); CREATININE 0.64 MG/DL (0.60-1.10); GLUCOSE 87 MG/DL (70-104); POTASSIUM 4.4 MMOL/L (3.5-5.1); SODIUM 139 MMOL/L (135-145); TOTAL PROTEIN 6.9 G/DL (6.4-8.2); VANCOMYCIN,TROUGH 2.6 UG/ML (6.0-14.0); eGFR > 90 ML/MIN
[2021-11-15 08:59] LABS: TOTAL CARBON DIOXIDE 29.6 MMOL/L (24-32)
--- NOTE | 2021-11-15 09:00 | NUR ---
Pt transferred to ICU gave report to Leann all questions and concerned addressed at this time.
[2021-11-15 09:01] LABS: ANION GAP 9 (8-16)
[2021-11-15] MEDS ORDERED: furosemide 40mg/4ml inj IV ONE (09:05)
[2021-11-15] MEDS: dexmedetomidine/D5W 100mL 100 ML IV SCH ×2 (09:19→15:30)
--- NOTE | 2021-11-15 09:21 | NUR ---
Pt arrived to ICU 2039 at 0905. Pt agitated, groaning, with acute respiratory distress AEB RR> 44, abd breathing accessory muscles, diaphoresis. 4 per son transferred to ICU bed. oxygen HF NC @ 15 LPM and NRB mask @ 15LPM. Charge nurse present, 3 RT, tele nurse, two techs and two ICU nurses. IV placed to Left hand #20, precedex started at 0.4 mcgs. Restraints secured. pt noticeably calming after precidex. labs ordered stat. quick skin check revealed no significant skin issues. CRM + regarding restraints to l Addendum: 11/15/21 at 0927 by Lindsey Wyatt RN restraints to BUE (soft restraints). Temp harris cath placed: 16Fr, on first try, with 35CC megan yellow urine return. continue with HOB at 35 degrees. pt continues tachypneic with accessory muscles, though improvement noted in overall agitation and combativeness. Telemetry Jia BALBUENA gave report to this nurse and Leann BALBUENA. all questions answered. safety measures in place.
--- NOTE | 2021-11-15 09:30 | NUR ---
Dr. Sidhu to see pt. new orders received new orders for labs, dilauded 1mg stat, tylenol per rectum for 38.5. discussed pt without known family.
[2021-11-15] MEDS ORDERED: acetaminophen 650mg rectal suppository RC PRN (09:45)
[2021-11-15] MEDS ORDERED: HYDROmorphone 1 mg/ml syringe IV ONE (09:45)
[2021-11-15 09:47] LABS: ABG BASE EXCESS 7.8 mmol/L (-2.0-2.0); ABG HCO3 33.8 mmol/L (22.0-26.0); ABG OXYGEN SATURATION 81.5 % (94-97); ABG PCO2 (T) 57.4 mmHg (35.0-48.0); ABG PO2 (T) 52.4 mmHg (75.0-100.0); ALLEN'S TEST POSITIVE; FCOHb 0.9 % (0.0-3.9); FLOW 30 L/min; FMetHb 0.1 % (0.0-1.5); FO2Hb 80.7 % (94-97); PATIENT TEMPERATURE 38.9; TOTAL HEMOGLOBIN 13.3 G/dl (14.0-18.0)
--- NOTE | 2021-11-15 09:53 | NUR ---
ABG analysis showed to Dr. Sidhu. RT stated that Cpap could be beneficial for the patient due to the low oxygenation and the chest xray that shows very little healthy lung field, the positive pressure could help. Dr. Sidhu agreed. RT bedside placing patient on Cpap.
[2021-11-15 10:00] LABS: BASOPHILS # (AUTO) 0.1 X10'3 (0-0.2); BASOPHILS % (AUTO) 0.7 % (0-1); EOSINOPHILS % (AUTO) 0.2 % (0-6); HEMATOCRIT 37.1 % (42.0-52.0); HEMOGLOBIN 12.2 g/dl (14.0-17.9); LYMPHOCYTES # (AUTO) 1.2 X10'3 (1.1-4.8); LYMPHOCYTES % (AUTO) 8.2 % (21-51); MEAN CORPUSCULAR HEMOGLOBIN 29.9 PG (27.0-31.0); MEAN CORPUSCULAR HGB CONC 32.7 g/dL (33.0-36.5); MEAN CORPUSCULAR VOLUME 91.4 FL (78-98); MEAN PLATELET VOLUME 8.4 FL (7.4-10.4); MONOCYTES # (AUTO) 1.1 X10'3 (0-0.9); MONOCYTES % (AUTO) 7.2 % (2-12); NEUTROPHILS # (AUTO) 12.2 X10'3 (1.8-7.7); NEUTROPHILS % (AUTO) 83.7 % (42-75); PLATELET COUNT 531 X10'3 (140-440); RED BLOOD COUNT 4.06 X10'6 (4.70-6.10); RED CELL DISTRIBUTION WIDTH 16.3 % (11.5-14.5); WHITE BLOOD COUNT 14.6 X10'3 (4.5-11.0)
[2021-11-15] MEDS ORDERED: HYDROmorphone 1 mg/ml syringe IV PRN (10:15)
[2021-11-15 10:18] LABS: APTT 26 SECONDS (22-32); D-DIMER 4.85 MG/L FEU (0-0.50)
--- NOTE | 2021-11-15 10:22 | NUR ---
Round summary: with Dr. Sidhu disucssed pt current health status, minor improvement on CPAP/precedex/dilauded. Per Dr. Sidhu, continue lovenox, attain blood cultures, urinalysis, d/x vanco, start zyvox 600mg now then BID, ensure social work coordinator on board, and add dilauded 1mg Q4 horus prn. plan: calm with meds (ie precedex), CPAP, diurese. safety measures in place. HOB remains elevated. pt tahcypnic, but in 30's now compared to 40's earlier. tylenol given DC to address temp.
[2021-11-15 10:30] LABS: ALANINE AMINOTRANSFERASE 43 U/L (12-78); ALBUMIN 2.2 G/DL (3.4-5.0); ALBUMIN/GLOBULIN RATIO 0.5 (1.1-1.5); ANION GAP 8 (8-16); ASPARTATE AMINO TRANSFERASE 34 U/L (10-37); BILIRUBIN,TOTAL 0.5 MG/DL (0.1-1.0); BLOOD UREA NITROGEN 18 MG/DL (7-18); BUN/CREATININE RATIO 27.7 (5.4-32.0); CALCIUM 8.4 MG/DL (8.5-10.1); CHLORIDE 101 MMOL/L (99-107); CREATININE 0.65 MG/DL (0.60-1.10); GLUCOSE 87 MG/DL (70-104); MAGNESIUM 2.1 MG/DL (1.5-2.4); PHOSPHORUS 3.2 MG/DL (2.3-4.5); POTASSIUM 4.1 MMOL/L (3.5-5.1); SODIUM 139 MMOL/L (135-145); TOTAL CARBON DIOXIDE 30.2 MMOL/L (24-32); TOTAL PROTEIN 6.4 G/DL (6.4-8.2); eGFR > 90 ML/MIN
[2021-11-15] MEDS: enoxaparin 30mg/0.3ml syringe SUBCUT SCH ×2 (10:47→20:23)
[2021-11-15] MEDS: enoxaparin 60mg/0.6ml syringe SUBCUT SCH ×2 (10:47→20:24)
--- NOTE | 2021-11-15 10:49 | NUR ---
F/u 11/15: Pt transferred to ICU for acute respiratory distress currently agitated in restraints requiring CPAP per RN. Titiox to start today per relationship associate; pt not appropriate for low-tyramine diet ed at this time. Pt previously 100% PO avg regular diet while on BIPAP on the floor per EMR. LBM 11/13. Will monitor for further PO trends and further nutrition intervention needs this admit. Recs: 1. Continue Regular diet as tolerated 2. monitor for ONS needs pending further PO trends 3. Bowel care per rx 4. Weekly wts Addendum: 11/15/21 at [address] Amended: Links added.
[2021-11-15 10:56] LABS: CLARITY,URINE CLEAR (Clear); COLOR,URINE YELLOW (Yellow); GLUCOSE, URINE NEGATIVE (Neg); KETONES,URINE NEGATIVE (Neg); LEUKOCYTE ESTERASE ,URINE NEGATIVE (Neg); NITRITES, URINE NEGATIVE (Neg); OCCULT BLOOD,URINE NEGATIVE (Neg); PROTEIN,URINE NEGATIVE (Neg); UROBILINOGEN,URINE 0.2 E.U/dL (0.2-1.0)
[2021-11-15] MEDS: linezolid 600mg/300ml PREMIX 300 ML IV SCH ×2 (10:56→20:24)
[2021-11-15 11:05] LABS: UA COLLECTION TYPE FOLEY CATH
--- NOTE | 2021-11-15 11:40 | NUR ---
Called Dr. Sidhu. New orders received. Called Dr. Sidhu regarding soft blood pressures and pt leaning towards necessitating a line. Per Dr. Sidhu, see if PICC nurse can urgently place. ok to use low dose levophed peripherally if needed. PICC nurse paged. Disha BALBUENA called back, and is going to grab supplies and head here martinez. Per Dr. Sidhu, Dr. Sidhu will sign consent for EMERGENT PICC LINE placement.
[2021-11-15] MEDS ORDERED: NORepinephrine inj. 8 MG in dextrose 5%-water 242 ML IV SCH (11:55)
[2021-11-15] MEDS ORDERED: NORepinephrine inj. 8 MG in normal saline 250ml IV soln 242 ML IV SCH (12:24)
[2021-11-15] MEDS: NORepinephrine 8mg/ 250ml NS 250 ML IV SCH (12:39)
[2021-11-15] MEDS: piperacillin/tazo 3.375gm/50ml 50 ML IV SCH ×2 (16:30)
--- NOTE | 2021-11-15 16:35 | NUR ---
Pt abruptly awake. pt reoriented to surroundings. Dr. Sidhu and Carlitos RN also at bedside. code status discussed. pt indicated he DOES WANT to be intubated if necessary. Dr. Sidhu acknowledged this and stated he would be changing the code status. Pt redirectable x 10 minutes until becoming increasingly anxious, tachypneic, unable to follow directions, pulling at lines, desaturating and trying to climb out of bed. BUE soft restraints reinitiated. soothing theraptutic conversation employed, pt medicated for pain and precidex increased. pt with increased tranquility and back to stable spo2 in 90's on bipap.
--- NOTE | 2021-11-15 18:10 | NUR ---
Problems reprioritized. Patient report given, questions answered & plan of care reviewed with Clarisa BALBUENA. discussed pt transfer to this unit, abrupt waking up @ 4pm, drips etc. Safety measures in palce. HOB @ 30 degrees. cpap at 90%. VS stable.
--- NOTE | 2021-11-15 19:21 | NUR ---
Pt is a transfer patient from [facility]. Per previous nurse, pt went into acute respiratory distress. His oxygenation demands drastically increased, pt became combative and had to be restrained. Pt was then transferred to ICU, placed on Precedex drip with Morphine PRN. Pt is currently calm, however, while turning, immediately awakened, became anxious, and had to verbally be calmed down. Pt slowly returned to calm state. Pt will not receive PO medications. Pt is on CPAP and oxygenation is a priority over PO medications based on my nursing judgement. Nutrition will be passed on to morning staff so that MD will decide if NG tube or TPN will be needed to maintain pt nutritional status. Pt is currently on Precedex at 0.5, with Levophed on hold. Current blood pressure is 108/67 with a heart rate of 58. C. Jermain BALBUENA
[2021-11-15] MEDS: temazepam 15mg capsule PO SCH (20:25)
[2021-11-16] VITALS (24 sets, daily range): BP systolic 91–143; BP diastolic 49–72
[2021-11-16] MEDS: dexmedetomidine/D5W 100mL 100 ML IV SCH ×3 (00:17→20:37)
[2021-11-16] MEDS: piperacillin/tazo 3.375gm/50ml 50 ML IV SCH ×3 (00:32→16:33)
[2021-11-16] MEDS: methylPREDNISolone sod succ 125mg/2ml vial IV SCH ×4 (02:09→20:01)
[2021-11-16 03:00] LABS: EOSINOPHILS % (AUTO) 0.1 % (0-6); HEMOGLOBIN 11.7 g/dl (14.0-17.9); LYMPHOCYTES # (AUTO) 0.8 X10'3 (1.1-4.8); MEAN CORPUSCULAR HGB CONC 32.3 g/dL (33.0-36.5); MEAN PLATELET VOLUME 8.9 FL (7.4-10.4); MONOCYTES # (AUTO) 0.3 X10'3 (0-0.9); RED BLOOD COUNT 3.92 X10'6 (4.70-6.10)
[2021-11-16 03:02] LABS: BASOPHILS % (AUTO) 0.1 % (0-1); HEMATOCRIT 36.3 % (42.0-52.0); LYMPHOCYTES % (AUTO) 10.3 % (21-51); MEAN CORPUSCULAR HEMOGLOBIN 29.9 PG (27.0-31.0); MEAN CORPUSCULAR VOLUME 92.5 FL (78-98); MONOCYTES % (AUTO) 3.9 % (2-12); NEUTROPHILS # (AUTO) 6.4 X10'3 (1.8-7.7); NEUTROPHILS % (AUTO) 85.6 % (42-75); PLATELET COUNT 544 X10'3 (140-440); WHITE BLOOD COUNT 7.5 X10'3 (4.5-11.0)
[2021-11-16 03:19] LABS: ALANINE AMINOTRANSFERASE 34 U/L (12-78); ALBUMIN/GLOBULIN RATIO 0.5 (1.1-1.5); ANION GAP 3 (8-16); ASPARTATE AMINO TRANSFERASE 14 U/L (10-37); BILIRUBIN,TOTAL 0.4 MG/DL (0.1-1.0); BLOOD UREA NITROGEN 25 MG/DL (7-18); BUN/CREATININE RATIO 42.4 (5.4-32.0); CALCIUM 8.6 MG/DL (8.5-10.1); CHLORIDE 105 MMOL/L (99-107); CREATININE 0.59 MG/DL (0.60-1.10); GLUCOSE 162 MG/DL (70-104); POTASSIUM 5.1 MMOL/L (3.5-5.1); SODIUM 142 MMOL/L (135-145); TOTAL PROTEIN 6.2 G/DL (6.4-8.2); eGFR > 90 ML/MIN
--- NOTE | 2021-11-16 06:02 | NUR ---
pt had a pretty decent night. Heart rate did stay in the 50's with a few dips in the 40's but not sustained. Blood pressure was on the soft side throughout the night, but not enough to require Levophed to be restarted. Precedex is at 0.4mcg/kg/hr. Urine output was good. Oxygenation was good throughout the night as well on CPAP (90% O2). Pt was given a bath and linen was changed. K did come back 5.1. Pt did not receive anything by mouth last night, so nutritional/diet status needs to be addressed today. Rubi lAy RN
[2021-11-16] MEDS: NORepinephrine 8mg/ 250ml NS 250 ML IV SCH ×2 (06:30→16:32)
--- NOTE | 2021-11-16 06:42 | NUR ---
Patient in room ICU 2039. I have received report from Clarisa BALBUENA and had the opportunity to ask questions and assume patient care. Pt supine in bed, HOB to 25 degrees, chest rising and falling with CPAP patent and in place. minimal air leak. precidex at 0.4. HR mid 50's will monitor closely. restraints to BUE, CRM +, no s/sx injury. safety measures in place.
[2021-11-16] MEDS: linezolid 600mg/300ml PREMIX 300 ML IV SCH ×2 (07:42→20:01)
[2021-11-16] MEDS: enoxaparin 30mg/0.3ml syringe SUBCUT SCH ×2 (07:43→20:02)
[2021-11-16] MEDS: enoxaparin 60mg/0.6ml syringe SUBCUT SCH ×2 (07:43→20:01)
[2021-11-16] MEDS: ipratropium/albuterol 3ml nebule NEB SCH ×5 (07:46→23:30)
[2021-11-16] MEDS: K and/or MAG REPLACEMENT MC SCH (08:00)
[2021-11-16] MEDS: guaiFENesin ER 600mg tablet PO SCH ×2 (08:00→20:01)
[2021-11-16] MEDS: gabapentin 100mg capsule PO SCH ×3 (08:00→20:01)
[2021-11-16] MEDS ORDERED: bisacodyl 5mg tablet.DR PO PRN (13:15)
[2021-11-16 13:19] LABS: ABG HCO3 33.6 mmol/L (22.0-26.0); ABG OXYGEN SATURATION 85.8 % (94-97); ABG PCO2 (T) 50.3 mmHg (35.0-48.0); ABG PO2 (T) 50.5 mmHg (75.0-100.0); ALLEN'S TEST POSITIVE; FCOHb 0.9 % (0.0-3.9); FMetHb 0.3 % (0.0-1.5); FO2Hb 84.8 % (94-97); TOTAL HEMOGLOBIN 13.4 G/dl (14.0-18.0)
[2021-11-16] MEDS: furosemide 40mg/4ml inj IV SCH (14:03)
[2021-11-16] MEDS: pantoprazole 40MG/NS 100ML BAG 100 ML IV SCH (14:50)
[2021-11-16 17:18] LABS: HEMOGLOBIN A1C 6.8 % (4.5-6.2)
--- NOTE | 2021-11-16 18:21 | NUR ---
Problems reprioritized. Patient report given, questions answered & plan of care reviewed with Omer wolff.
[2021-11-16] MEDS: temazepam 15mg capsule PO SCH (20:01)
[2021-11-17] VITALS (27 sets, daily range): BP systolic 91–151; BP diastolic 35–71
[2021-11-17] MEDS: piperacillin/tazo 3.375gm/50ml 50 ML IV SCH ×4 (00:54→23:16)
[2021-11-17] MEDS: methylPREDNISolone sod succ 125mg/2ml vial IV SCH ×4 (01:02→20:04)
[2021-11-17 03:12] LABS: EOSINOPHILS % (AUTO) 0 % (0-6); HEMOGLOBIN 12.3 g/dl (14.0-17.9); LYMPHOCYTES # (AUTO) 0.9 X10'3 (1.1-4.8); MONOCYTES # (AUTO) 0.7 X10'3 (0-0.9); NEUTROPHILS # (AUTO) 11.1 X10'3 (1.8-7.7); RED BLOOD COUNT 4.11 X10'6 (4.70-6.10)
[2021-11-17 03:14] LABS: BASOPHILS % (AUTO) 0.2 % (0-1); HEMATOCRIT 37.3 % (42.0-52.0); LYMPHOCYTES % (AUTO) 6.9 % (21-51); MEAN CORPUSCULAR HEMOGLOBIN 29.9 PG (27.0-31.0); MEAN CORPUSCULAR HGB CONC 32.9 g/dL (33.0-36.5); MEAN CORPUSCULAR VOLUME 90.7 FL (78-98); MEAN PLATELET VOLUME 8.7 FL (7.4-10.4); MONOCYTES % (AUTO) 5.2 % (2-12); NEUTROPHILS % (AUTO) 87.7 % (42-75); PLATELET COUNT 624 X10'3 (140-440); RED CELL DISTRIBUTION WIDTH 16.4 % (11.5-14.5); WHITE BLOOD COUNT 12.7 X10'3 (4.5-11.0)
[2021-11-17 03:28] LABS: ALANINE AMINOTRANSFERASE 29 U/L (12-78); ALBUMIN 1.9 G/DL (3.4-5.0); ALBUMIN/GLOBULIN RATIO 0.5 (1.1-1.5); ALKALINE PHOSPHATASE 83 IU/L (46-116); ANION GAP 4 (8-16); ASPARTATE AMINO TRANSFERASE 13 U/L (10-37); BILIRUBIN,TOTAL 0.3 MG/DL (0.1-1.0); BLOOD UREA NITROGEN 31 MG/DL (7-18); BUN/CREATININE RATIO 41.9 (5.4-32.0); CALCIUM 8.4 MG/DL (8.5-10.1); CHLORIDE 100 MMOL/L (99-107); CREATININE 0.74 MG/DL (0.60-1.10); GLUCOSE 200 MG/DL (70-104); POTASSIUM 4.8 MMOL/L (3.5-5.1); SODIUM 136 MMOL/L (135-145); TOTAL CARBON DIOXIDE 32.4 MMOL/L (24-32); eGFR > 90 ML/MIN
[2021-11-17] MEDS: NORepinephrine 8mg/ 250ml NS 250 ML IV SCH ×2 (06:34→20:37)
[2021-11-17] MEDS: guaiFENesin ER 600mg tablet PO SCH ×2 (07:43→20:04)
[2021-11-17] MEDS: gabapentin 100mg capsule PO SCH ×3 (07:43→20:05)
[2021-11-17] MEDS: enoxaparin 60mg/0.6ml syringe SUBCUT SCH ×2 (07:44→20:05)
[2021-11-17] MEDS: enoxaparin 30mg/0.3ml syringe SUBCUT SCH ×2 (07:45→20:05)
[2021-11-17] MEDS: pantoprazole 40MG/NS 100ML BAG 100 ML IV SCH (07:45)
[2021-11-17] MEDS: furosemide 40mg/4ml inj IV SCH (07:45)
[2021-11-17] MEDS: linezolid 600mg/300ml PREMIX 300 ML IV SCH ×2 (07:58→20:05)
[2021-11-17] MEDS: K and/or MAG REPLACEMENT MC SCH ×2 (08:00→20:00)
[2021-11-17] MEDS: ipratropium/albuterol 3ml nebule NEB SCH ×4 (09:30→20:27)
[2021-11-17] MEDS: dexmedetomidine/D5W 100mL 100 ML IV SCH (11:41)
[2021-11-17] MEDS ORDERED: dextrose 50%-water 50ml dispensing syringe IV PRN ×2 (12:55)
[2021-11-17] MEDS ORDERED: MESSAGE TO PHARMACY PO ONE (12:55)
[2021-11-17] MEDS ORDERED: glucagon, human recombinant 1mg kit SUBCUT PRN (12:55)
[2021-11-17] MEDS ORDERED: dextrose ORAL solution 15 GM/59 ML bottle PO PRN ×2 (12:55)
--- NOTE | 2021-11-17 14:19 | NUR ---
F/u 11/17: Pt A1C results 6.8% per EMR; possibly impacted by steroids and catabolic state this admit. Glu 163-258mg/dl past 24 hours starting on glycemic protocol today per EMR. Pt has no prior DM hx per EMR and would benefit from discussion w/ physician regarding DM prior to RD visit for education once appropriate this admit. PO 100% regular diet breakfast this AM per RN after 3 days of being unofficially NPO given respiratory status. Pt placed on high flow for breakfast and returned to BIPAP after meal per RN today. LBM 11/14 received dulcolax 11/16 per EMR. Will monitor for further nutrition intervention needs this admit. Recs: 1. Continue Regular diet as tolerated; consider carb controlled restriction IF PO trends adequate given A1C results 2. monitor for ONS needs pending further PO trends 3. Bowel care per rx 4. Weekly wts 5. Pt made aware of A1C/DM by physician prior to RD visit for DM education once more appropriate this admit Addendum: 11/17/21 at [address] Amended: Links added.
[2021-11-17] MEDS: acetaminophen 325mg tablet PO PRN (16:48)
[2021-11-17] MEDS: insulin Lispro (HumaLOG) vial - multi-dose SQ SCH (17:44)
[2021-11-17] MEDS: temazepam 15mg capsule PO SCH (20:04)
[2021-11-17] MEDS: insulin glargine (Lantus) pen - multi-dose SQ SCH (20:16)
[2021-11-17] MEDS: guaiFENesin/DM 10ml UD oral syrup PO PRN (23:15)
[2021-11-18] VITALS (32 sets, daily range): BP systolic 83–125; BP diastolic 40–74
[2021-11-18] MEDS: bumetanide 0.25mg/ml 4ml vial IV SCH ×3 (00:04→02:28)
[2021-11-18] MEDS: ipratropium/albuterol 3ml nebule NEB SCH ×6 (00:08→23:00)
[2021-11-18] MEDS: dexmedetomidine/D5W 100mL 100 ML IV SCH ×3 (00:13→21:19)
[2021-11-18] MEDS: methylPREDNISolone sod succ 125mg/2ml vial IV SCH ×4 (02:28→21:10)
[2021-11-18 03:05] LABS: BASOPHILS % (AUTO) 0 % (0-1); EOSINOPHILS % (AUTO) 0.1 % (0-6); HEMATOCRIT 38.6 % (42.0-52.0); HEMOGLOBIN 12.5 g/dl (14.0-17.9); LYMPHOCYTES # (AUTO) 0.7 X10'3 (1.1-4.8); LYMPHOCYTES % (AUTO) 4.7 % (21-51); MEAN CORPUSCULAR HEMOGLOBIN 29.5 PG (27.0-31.0); MEAN CORPUSCULAR HGB CONC 32.3 g/dL (33.0-36.5); MEAN CORPUSCULAR VOLUME 91.6 FL (78-98); MEAN PLATELET VOLUME 8.7 FL (7.4-10.4); MONOCYTES # (AUTO) 0.8 X10'3 (0-0.9); MONOCYTES % (AUTO) 5.3 % (2-12); NEUTROPHILS % (AUTO) 89.9 % (42-75); PLATELET COUNT 518 X10'3 (140-440); RED BLOOD COUNT 4.22 X10'6 (4.70-6.10); RED CELL DISTRIBUTION WIDTH 16.5 % (11.5-14.5); WHITE BLOOD COUNT 14.5 X10'3 (4.5-11.0)
[2021-11-18 03:37] LABS: ALANINE AMINOTRANSFERASE 36 U/L (12-78); ALBUMIN 2.2 G/DL (3.4-5.0); ALBUMIN/GLOBULIN RATIO 0.5 (1.1-1.5); ALKALINE PHOSPHATASE 78 IU/L (46-116); ANION GAP 10 (8-16); ASPARTATE AMINO TRANSFERASE 20 U/L (10-37); BILIRUBIN,TOTAL 0.5 MG/DL (0.1-1.0); BLOOD UREA NITROGEN 28 MG/DL (7-18); BUN/CREATININE RATIO 32.6 (5.4-32.0); CHLORIDE 94 MMOL/L (99-107); CREATININE 0.86 MG/DL (0.60-1.10); GLUCOSE 228 MG/DL (70-104); POTASSIUM 4.1 MMOL/L (3.5-5.1); SODIUM 135 MMOL/L (135-145); TOTAL CARBON DIOXIDE 31.4 MMOL/L (24-32); TOTAL PROTEIN 6.4 G/DL (6.4-8.2); eGFR > 90 ML/MIN
[2021-11-18] MEDS: K and/or MAG REPLACEMENT MC SCH ×2 (08:00→21:11)
[2021-11-18] MEDS: insulin Lispro (HumaLOG) vial - multi-dose SQ SCH ×3 (08:56→17:54)
[2021-11-18] MEDS: gabapentin 100mg capsule PO SCH (08:57)
[2021-11-18] MEDS: guaiFENesin ER 600mg tablet PO SCH ×2 (08:57→21:11)
[2021-11-18] MEDS: pantoprazole 40MG/NS 100ML BAG 100 ML IV SCH (08:59)
[2021-11-18] MEDS: piperacillin/tazo 3.375gm/50ml 50 ML IV SCH ×3 (09:03→23:45)
[2021-11-18] MEDS: furosemide 40mg/4ml inj IV SCH (09:08)
[2021-11-18] MEDS: enoxaparin 30mg/0.3ml syringe SUBCUT SCH ×2 (09:10→21:11)
[2021-11-18] MEDS: enoxaparin 60mg/0.6ml syringe SUBCUT SCH ×2 (09:10→21:12)
[2021-11-18] MEDS: linezolid 600mg/300ml PREMIX 300 ML IV SCH ×2 (09:10→21:10)
[2021-11-18] MEDS: traMADol 50MG tablet PO PRN ×2 (09:38→19:32)
[2021-11-18] MEDS: ibuprofen tablet 400 MG TABLET PO PRN ×2 (09:38→17:29)
[2021-11-18] MEDS: guaiFENesin/DM 10ml UD oral syrup PO PRN (09:48)
[2021-11-18] MEDS: NORepinephrine 8mg/ 250ml NS 250 ML IV SCH ×2 (10:40→23:56)
[2021-11-18] MEDS: gabapentin 300mg capsule PO SCH ×2 (12:44→21:12)
[2021-11-18] MEDS: temazepam 15mg capsule PO SCH (21:12)
[2021-11-18] MEDS: insulin glargine (Lantus) pen - multi-dose SQ SCH (21:59)
[2021-11-19] VITALS (21 sets, daily range): BP systolic 97–153; BP diastolic 32–75
[2021-11-19] MEDS: methylPREDNISolone sod succ 125mg/2ml vial IV SCH ×5 (02:45→20:10)
[2021-11-19 03:09] LABS: BASOPHILS % (AUTO) 0 % (0-1); EOSINOPHILS % (AUTO) 0 % (0-6); HEMATOCRIT 38.6 % (42.0-52.0); HEMOGLOBIN 12.5 g/dl (14.0-17.9); LYMPHOCYTES # (AUTO) 0.5 X10'3 (1.1-4.8); LYMPHOCYTES % (AUTO) 5.5 % (21-51); MEAN CORPUSCULAR HEMOGLOBIN 29.8 PG (27.0-31.0); MEAN CORPUSCULAR HGB CONC 32.3 g/dL (33.0-36.5); MEAN CORPUSCULAR VOLUME 92.3 FL (78-98); MEAN PLATELET VOLUME 8.7 FL (7.4-10.4); MONOCYTES # (AUTO) 0.5 X10'3 (0-0.9); MONOCYTES % (AUTO) 5.3 % (2-12); NEUTROPHILS # (AUTO) 8.7 X10'3 (1.8-7.7); NEUTROPHILS % (AUTO) 89.2 % (42-75); PLATELET COUNT 482 X10'3 (140-440); RED BLOOD COUNT 4.19 X10'6 (4.70-6.10); WHITE BLOOD COUNT 9.8 X10'3 (4.5-11.0)
[2021-11-19 04:15] LABS: ALANINE AMINOTRANSFERASE 37 U/L (12-78); ALBUMIN 2.2 G/DL (3.4-5.0); ALBUMIN/GLOBULIN RATIO 0.6 (1.1-1.5); ALKALINE PHOSPHATASE 73 IU/L (46-116); ANION GAP 4 (8-16); ASPARTATE AMINO TRANSFERASE 13 U/L (10-37); BILIRUBIN,TOTAL 0.4 MG/DL (0.1-1.0); BLOOD UREA NITROGEN 25 MG/DL (7-18); CALCIUM 8.2 MG/DL (8.5-10.1); CHLORIDE 97 MMOL/L (99-107); CREATININE 0.61 MG/DL (0.60-1.10); GLUCOSE 178 MG/DL (70-104); POTASSIUM 4.8 MMOL/L (3.5-5.1); SODIUM 134 MMOL/L (135-145); TOTAL CARBON DIOXIDE 33.4 MMOL/L (24-32); TOTAL PROTEIN 6.1 G/DL (6.4-8.2); eGFR > 90 ML/MIN
[2021-11-19] MEDS: ipratropium/albuterol 3ml nebule NEB SCH ×5 (07:13→23:00)
[2021-11-19] MEDS: pantoprazole 40MG/NS 100ML BAG 100 ML IV SCH (07:38)
[2021-11-19] MEDS: piperacillin/tazo 3.375gm/50ml 50 ML IV SCH ×3 (07:42→23:36)
[2021-11-19] MEDS: enoxaparin 60mg/0.6ml syringe SUBCUT SCH ×2 (07:43→20:09)
[2021-11-19] MEDS: enoxaparin 30mg/0.3ml syringe SUBCUT SCH ×2 (07:43→20:09)
[2021-11-19] MEDS: gabapentin 300mg capsule PO SCH ×3 (07:44→20:10)
[2021-11-19] MEDS: furosemide 40mg/4ml inj IV SCH ×2 (07:44→20:10)
[2021-11-19] MEDS: guaiFENesin ER 600mg tablet PO SCH ×2 (07:44→20:10)
[2021-11-19] MEDS: dexmedetomidine/D5W 100mL 100 ML IV SCH (07:52)
[2021-11-19] MEDS: insulin Lispro (HumaLOG) vial - multi-dose SQ SCH ×3 (07:57→17:53)
[2021-11-19] MEDS: ibuprofen tablet 400 MG TABLET PO PRN ×2 (07:59→19:05)
[2021-11-19] MEDS: linezolid 600mg/300ml PREMIX 300 ML IV SCH ×2 (07:59→20:32)
[2021-11-19] MEDS: K and/or MAG REPLACEMENT MC SCH ×2 (08:00→20:00)
--- NOTE | 2021-11-19 14:25 | NUR ---
bath and hair washed, iv tubing changed, linens changed.
[2021-11-19] MEDS: temazepam 15mg capsule PO SCH (20:10)
[2021-11-19] MEDS: insulin glargine (Lantus) pen - multi-dose SQ SCH (20:37)
[2021-11-20] VITALS (25 sets, daily range): BP systolic 91–126; BP diastolic 42–72
[2021-11-20] MEDS: methylPREDNISolone sod succ 125mg/2ml vial IV SCH ×4 (01:55→19:50)
[2021-11-20 03:38] LABS: BASOPHILS # (AUTO) 0.1 X10'3 (0-0.2); BASOPHILS % (AUTO) 0.6 % (0-1); EOSINOPHILS % (AUTO) 0 % (0-6); HEMATOCRIT 41.7 % (42.0-52.0); HEMOGLOBIN 13.2 g/dl (14.0-17.9); LYMPHOCYTES # (AUTO) 0.7 X10'3 (1.1-4.8); LYMPHOCYTES % (AUTO) 5.8 % (21-51); MEAN CORPUSCULAR HEMOGLOBIN 29.5 PG (27.0-31.0); MEAN CORPUSCULAR HGB CONC 31.6 g/dL (33.0-36.5); MEAN CORPUSCULAR VOLUME 93.1 FL (78-98); MEAN PLATELET VOLUME 9.2 FL (7.4-10.4); MONOCYTES # (AUTO) 0.7 X10'3 (0-0.9); MONOCYTES % (AUTO) 5.9 % (2-12); NEUTROPHILS # (AUTO) 11.1 X10'3 (1.8-7.7); NEUTROPHILS % (AUTO) 87.7 % (42-75); PLATELET COUNT 498 X10'3 (140-440); RED BLOOD COUNT 4.47 X10'6 (4.70-6.10); RED CELL DISTRIBUTION WIDTH 16.3 % (11.5-14.5); WHITE BLOOD COUNT 12.6 X10'3 (4.5-11.0)
[2021-11-20 03:53] LABS: ALANINE AMINOTRANSFERASE 40 U/L (12-78); ALBUMIN 2.4 G/DL (3.4-5.0); ALBUMIN/GLOBULIN RATIO 0.6 (1.1-1.5); ALKALINE PHOSPHATASE 107 IU/L (46-116); ANION GAP 6 (8-16); ASPARTATE AMINO TRANSFERASE 15 U/L (10-37); BILIRUBIN,TOTAL 0.3 MG/DL (0.1-1.0); BLOOD UREA NITROGEN 32 MG/DL (7-18); CALCIUM 8.5 MG/DL (8.5-10.1); CHLORIDE 96 MMOL/L (99-107); CREATININE 0.64 MG/DL (0.60-1.10); GLUCOSE 187 MG/DL (70-104); SODIUM 138 MMOL/L (135-145); TOTAL CARBON DIOXIDE 35.6 MMOL/L (24-32); TOTAL PROTEIN 6.3 G/DL (6.4-8.2); eGFR > 90 ML/MIN
[2021-11-20] MEDS: ibuprofen tablet 400 MG TABLET PO PRN ×2 (05:28→16:00)
--- NOTE | 2021-11-20 06:30 | NUR ---
Patient in room ICU 2039. I have received report from Isha BALBUENA and had the opportunity to ask questions and assume patient care.
--- NOTE | 2021-11-20 07:32 | NUR ---
F/u 11/20: Pt was changed to Carb controlled diet 11/19 and continues w/ 100% intake of meals partially meeting nutrient needs. Will provide double protein w/ some meals for additional calories/protein. Currently on 60L high flow oxygen per documentation. LBM 11/17 w/ PRN dulcolax given 11/16, recommend routine bowel care if MD agreeable. Will continue to monitor. Recs: 1. Continue Carb Controlled diet as tolerated 2. Double protein BIDBD 3. Bowel care per rx 4. Weekly wts 5. Pt made aware of A1C/DM by physician prior to RD visit for DM education once more appropriate this admit Addendum: 11/20/21 at [address] Amended: Links added.
[2021-11-20] MEDS: ipratropium/albuterol 3ml nebule NEB SCH ×5 (07:49→23:00)
[2021-11-20] MEDS: linezolid 600mg/300ml PREMIX 300 ML IV SCH ×2 (07:54→21:00)
[2021-11-20] MEDS: piperacillin/tazo 3.375gm/50ml 50 ML IV SCH ×3 (07:54→23:43)
[2021-11-20] MEDS: pantoprazole 40MG/NS 100ML BAG 100 ML IV SCH (07:54)
[2021-11-20] MEDS: enoxaparin 60mg/0.6ml syringe SUBCUT SCH ×2 (07:55→19:51)
[2021-11-20] MEDS: guaiFENesin ER 600mg tablet PO SCH ×2 (07:55→19:50)
[2021-11-20] MEDS: enoxaparin 30mg/0.3ml syringe SUBCUT SCH ×2 (07:55→19:51)
[2021-11-20] MEDS: gabapentin 300mg capsule PO SCH ×3 (07:56→21:00)
[2021-11-20] MEDS: furosemide 40mg/4ml inj IV SCH ×2 (07:56→19:50)
[2021-11-20] MEDS: K and/or MAG REPLACEMENT MC SCH ×2 (08:00→20:00)
[2021-11-20] MEDS: insulin Lispro (HumaLOG) vial - multi-dose SQ SCH ×3 (12:43→21:27)
[2021-11-20] MEDS: temazepam 15mg capsule PO SCH (21:00)
[2021-11-20] MEDS: insulin glargine (Lantus) pen - multi-dose SQ SCH (21:29)
--- NOTE | 2021-11-20 21:57 | NUR ---
Called Dr. Menezes to let him know pt is complaining of a stinging sensation in his nose. Pt states" It feels like there is an increase of oxygen going in and it stings, and I can feel it going up my nose and tho my forehead." Pt rates pain 05/10. order Nasal Saline [place]. Notified that pt was having PVC's and a brief moment of Ventricular Tachycardia was present. I notified of Pt's potassium which is currently a 5.0. stated that he wanted to just monitor and draw morning labs as routine.
[2021-11-20] MEDS: salt irrigation nasal spray 45 ML SPRAY NS PRN (22:12)
[2021-11-21] VITALS (24 sets, daily range): BP systolic 95–149; BP diastolic 45–76
[2021-11-21] MEDS: ibuprofen tablet 400 MG TABLET PO PRN ×3 (00:50→19:32)
[2021-11-21 01:02] LABS: ALANINE AMINOTRANSFERASE 33 U/L (12-78); ALBUMIN 2.3 G/DL (3.4-5.0); ALBUMIN/GLOBULIN RATIO 0.7 (1.1-1.5); ALKALINE PHOSPHATASE 89 IU/L (46-116); ANION GAP 4 (8-16); ASPARTATE AMINO TRANSFERASE 14 U/L (10-37); BILIRUBIN,TOTAL 0.2 MG/DL (0.1-1.0); BLOOD UREA NITROGEN 19 MG/DL (7-18); BUN/CREATININE RATIO 32.2 (5.4-32.0); CALCIUM 8.2 MG/DL (8.5-10.1); CHLORIDE 99 MMOL/L (99-107); CREATININE 0.59 MG/DL (0.60-1.10); GLUCOSE 219 MG/DL (70-104); POTASSIUM 4.3 MMOL/L (3.5-5.1); SODIUM 139 MMOL/L (135-145); TOTAL CARBON DIOXIDE 36.1 MMOL/L (24-32); TOTAL PROTEIN 5.8 G/DL (6.4-8.2); eGFR > 90 ML/MIN
[2021-11-21 01:04] LABS: BASOPHILS # (AUTO) 0.1 X10'3 (0-0.2); BASOPHILS % (AUTO) 0.9 % (0-1); EOSINOPHILS % (AUTO) 0 % (0-6); HEMATOCRIT 37.5 % (42.0-52.0); HEMOGLOBIN 12.4 g/dl (14.0-17.9); LYMPHOCYTES # (AUTO) 0.6 X10'3 (1.1-4.8); LYMPHOCYTES % (AUTO) 5.3 % (21-51); MEAN CORPUSCULAR VOLUME 91.1 FL (78-98); MEAN PLATELET VOLUME 8.8 FL (7.4-10.4); MONOCYTES # (AUTO) 0.7 X10'3 (0-0.9); MONOCYTES % (AUTO) 6.9 % (2-12); NEUTROPHILS # (AUTO) 9.3 X10'3 (1.8-7.7); NEUTROPHILS % (AUTO) 86.9 % (42-75); PLATELET COUNT 439 X10'3 (140-440); RED BLOOD COUNT 4.11 X10'6 (4.70-6.10); RED CELL DISTRIBUTION WIDTH 16.5 % (11.5-14.5); WHITE BLOOD COUNT 10.7 X10'3 (4.5-11.0)
[2021-11-21] MEDS: methylPREDNISolone sod succ 125mg/2ml vial IV SCH ×4 (01:56→19:30)
[2021-11-21] MEDS: acetaminophen 325mg tablet PO PRN (04:25)
[2021-11-21] MEDS: salt irrigation nasal spray 45 ML SPRAY NS PRN ×4 (04:31→19:36)
--- NOTE | 2021-11-21 05:40 | NUR ---
Called Dr. Whittaker to notify her of ST elevation noted on Lead II. Pt has been hypoxic throughout the night and has been desating in the 70's. Charge nurse aware and immediately drawed a troponin lab, ABG, and got a 12 lead ekg. Send a picture to Dr. Whittaker. wants to wait fot troponin lab to come back before starting tx sense pt is asymptotic. pt denies chest pain, numbnesss or tingling anywhere, SOB and pt just stated they are feeling restless. Will continue to monitor and Dr. whittaker said she will call back after reviewing his charts.
[2021-11-21 05:50] LABS: ABG BASE EXCESS 7.1 mmol/L (-2.0-2.0); ABG HCO3 33.9 mmol/L (22.0-26.0); ABG OXYGEN SATURATION 96.6 % (94-97); ABG PCO2 (T) 56.3 mmHg (35.0-48.0); ABG PO2 (T) 81.6 mmHg (75.0-100.0); ALLEN'S TEST POSITIVE; FCOHb 0.6 % (0.0-3.9); FLOW 60 L/min; FMetHb 0.2 % (0.0-1.5); FO2Hb 95.8 % (94-97); PATIENT TEMPERATURE 36.5; TOTAL HEMOGLOBIN 13.1 G/dl (14.0-18.0)
--- NOTE | 2021-11-21 07:01 | NUR ---
Patient in room ICU 2039. I have received report from Isha BALBUENA and had the opportunity to ask questions and assume patient care.
[2021-11-21] MEDS: pantoprazole 40MG/NS 100ML BAG 100 ML IV SCH (07:16)
[2021-11-21] MEDS: ipratropium/albuterol 3ml nebule NEB SCH ×5 (07:24→23:13)
[2021-11-21] MEDS: K and/or MAG REPLACEMENT MC SCH ×2 (08:00→19:19)
[2021-11-21] MEDS: linezolid 600mg/300ml PREMIX 300 ML IV SCH ×2 (08:48→19:35)
[2021-11-21] MEDS: gabapentin 300mg capsule PO SCH ×3 (08:51→20:51)
[2021-11-21] MEDS: furosemide 40mg/4ml inj IV SCH ×2 (08:51→19:31)
[2021-11-21] MEDS: guaiFENesin ER 600mg tablet PO SCH ×2 (08:52→19:31)
[2021-11-21] MEDS: enoxaparin 60mg/0.6ml syringe SUBCUT SCH ×2 (08:52→19:31)
[2021-11-21] MEDS: enoxaparin 30mg/0.3ml syringe SUBCUT SCH ×2 (08:53→19:31)
[2021-11-21] MEDS: insulin Lispro (HumaLOG) vial - multi-dose SQ SCH ×4 (09:12→20:59)
[2021-11-21] MEDS: piperacillin/tazo 3.375gm/50ml 50 ML IV SCH ×2 (09:37→15:26)
[2021-11-21] MEDS: traMADol 50MG tablet PO PRN (15:31)
--- NOTE | 2021-11-21 18:11 | NUR ---
Problems reprioritized. Patient report given, questions answered & plan of care reviewed with Jessica BALBUENA.
--- NOTE | 2021-11-21 18:14 | NUR ---
Patient in room ICU 2039. I have received report from Maylin BALBUENA and had the opportunity to ask questions and assume patient care.
[2021-11-21] MEDS: temazepam 15mg capsule PO SCH (20:51)
[2021-11-21] MEDS: insulin glargine (Lantus) pen - multi-dose SQ SCH (20:58)
[2021-11-21 21:52] LABS: BASOPHILS % (AUTO) 0 % (0-1); EOSINOPHILS % (AUTO) 0 % (0-6); HEMATOCRIT 38.1 % (42.0-52.0); HEMOGLOBIN 12.2 g/dl (14.0-17.9); LYMPHOCYTES # (AUTO) 0.4 X10'3 (1.1-4.8); LYMPHOCYTES % (AUTO) 3.6 % (21-51); MEAN CORPUSCULAR HEMOGLOBIN 29.6 PG (27.0-31.0); MEAN CORPUSCULAR HGB CONC 32.1 g/dL (33.0-36.5); MEAN CORPUSCULAR VOLUME 92.4 FL (78-98); MEAN PLATELET VOLUME 8.6 FL (7.4-10.4); MONOCYTES # (AUTO) 0.6 X10'3 (0-0.9); MONOCYTES % (AUTO) 5.3 % (2-12); NEUTROPHILS % (AUTO) 91.1 % (42-75); PLATELET COUNT 430 X10'3 (140-440); RED BLOOD COUNT 4.12 X10'6 (4.70-6.10); RED CELL DISTRIBUTION WIDTH 16.2 % (11.5-14.5)
[2021-11-21 22:17] LABS: ALANINE AMINOTRANSFERASE 32 U/L (12-78); ALBUMIN 2.4 G/DL (3.4-5.0); ALBUMIN/GLOBULIN RATIO 0.7 (1.1-1.5); ALKALINE PHOSPHATASE 103 IU/L (46-116); ANION GAP 7 (8-16); ASPARTATE AMINO TRANSFERASE 12 U/L (10-37); BILIRUBIN,TOTAL 0.1 MG/DL (0.1-1.0); BLOOD UREA NITROGEN 23 MG/DL (7-18); BUN/CREATININE RATIO 20.5 (5.4-32.0); CALCIUM 8.1 MG/DL (8.5-10.1); CHLORIDE 98 MMOL/L (99-107); CREATININE 1.12 MG/DL (0.60-1.10); GLUCOSE 281 MG/DL (70-104); MAGNESIUM 1.9 MG/DL (1.5-2.4); PHOSPHORUS 2.2 MG/DL (2.3-4.5); SODIUM 139 MMOL/L (135-145); TOTAL CARBON DIOXIDE 33.9 MMOL/L (24-32); TOTAL PROTEIN 5.7 G/DL (6.4-8.2); eGFR 68 ML/MIN
--- NOTE | 2021-11-21 22:30 | NUR ---
Patient having frequent runs of Vtach and PVCs. Labs drawn, all results within normal range. Patient alert/oriented x4, HR in 90s. MD Soto notified. No new orders received, will continue to monitor.
[2021-11-22] VITALS (24 sets, daily range): BP systolic 93–144; BP diastolic 43–82
[2021-11-22] MEDS: piperacillin/tazo 3.375gm/50ml 50 ML IV SCH ×3 (00:31→15:08)
[2021-11-22] MEDS: methylPREDNISolone sod succ 125mg/2ml vial IV SCH ×4 (02:01→20:50)
[2021-11-22] MEDS: salt irrigation nasal spray 45 ML SPRAY NS PRN ×3 (02:09→21:08)
[2021-11-22 02:43] LABS: BASOPHILS % (AUTO) 0.1 % (0-1); EOSINOPHILS % (AUTO) 0 % (0-6); HEMATOCRIT 38.4 % (42.0-52.0); HEMOGLOBIN 12.3 g/dl (14.0-17.9); LYMPHOCYTES # (AUTO) 0.8 X10'3 (1.1-4.8); LYMPHOCYTES % (AUTO) 5.9 % (21-51); MEAN CORPUSCULAR HEMOGLOBIN 29.5 PG (27.0-31.0); MEAN CORPUSCULAR HGB CONC 32.1 g/dL (33.0-36.5); MEAN CORPUSCULAR VOLUME 91.9 FL (78-98); MEAN PLATELET VOLUME 8.8 FL (7.4-10.4); MONOCYTES # (AUTO) 0.9 X10'3 (0-0.9); MONOCYTES % (AUTO) 6.9 % (2-12); NEUTROPHILS # (AUTO) 11.6 X10'3 (1.8-7.7); NEUTROPHILS % (AUTO) 87.1 % (42-75); PLATELET COUNT 433 X10'3 (140-440); RED BLOOD COUNT 4.18 X10'6 (4.70-6.10); WHITE BLOOD COUNT 13.4 X10'3 (4.5-11.0)
[2021-11-22 03:13] LABS: ALANINE AMINOTRANSFERASE 32 U/L (12-78); ALBUMIN 2.5 G/DL (3.4-5.0); ALBUMIN/GLOBULIN RATIO 0.8 (1.1-1.5); ALKALINE PHOSPHATASE 113 IU/L (46-116); ANION GAP 4 (8-16); ASPARTATE AMINO TRANSFERASE 15 U/L (10-37); BILIRUBIN,TOTAL 0.2 MG/DL (0.1-1.0); BLOOD UREA NITROGEN 24 MG/DL (7-18); BUN/CREATININE RATIO 30.8 (5.4-32.0); CALCIUM 8.4 MG/DL (8.5-10.1); CHLORIDE 100 MMOL/L (99-107); CREATININE 0.78 MG/DL (0.60-1.10); GLUCOSE 220 MG/DL (70-104); POTASSIUM 4.3 MMOL/L (3.5-5.1); SODIUM 141 MMOL/L (135-145); TOTAL CARBON DIOXIDE 37.4 MMOL/L (24-32); TOTAL PROTEIN 5.8 G/DL (6.4-8.2); eGFR > 90 ML/MIN
[2021-11-22] MEDS ORDERED: ringers solution, lacted 1,000 ML IV SCH (04:50)
[2021-11-22] MEDS ORDERED: ringers solution, lacted 500 ML IV SCH (04:55)
--- NOTE | 2021-11-22 06:15 | NUR ---
Problems reprioritized. Patient report given, questions answered & plan of care reviewed with Maylin BALBUENA.
--- NOTE | 2021-11-22 06:34 | NUR ---
Patient in room ICU 2039. I have received report from Jessica BALBUENA and had the opportunity to ask questions and assume patient care.
[2021-11-22] MEDS: ipratropium/albuterol 3ml nebule NEB SCH ×5 (07:00→23:00)
[2021-11-22] MEDS: gabapentin 300mg capsule PO SCH ×3 (07:33→20:51)
[2021-11-22] MEDS: guaiFENesin ER 600mg tablet PO SCH ×2 (07:34→20:51)
[2021-11-22] MEDS: pantoprazole 40mg Tablet.DR PO SCH (07:34)
[2021-11-22] MEDS: enoxaparin 30mg/0.3ml syringe SUBCUT SCH ×2 (07:34→20:52)
[2021-11-22] MEDS: K and/or MAG REPLACEMENT MC SCH ×2 (07:35→20:00)
[2021-11-22] MEDS: enoxaparin 60mg/0.6ml syringe SUBCUT SCH ×2 (07:35→20:51)
[2021-11-22] MEDS: ibuprofen tablet 400 MG TABLET PO PRN ×2 (07:36→21:08)
[2021-11-22] MEDS: insulin Lispro (HumaLOG) vial - multi-dose SQ SCH ×3 (08:30→19:35)
--- NOTE | 2021-11-22 18:09 | NUR ---
Problems reprioritized. Patient report given, questions answered & plan of care reviewed with Jessica BALBUENA.
--- NOTE | 2021-11-22 18:10 | NUR ---
Patient in room ICU 2039. I have received report from Maylin BALBUENA and had the opportunity to ask questions and assume patient care.
[2021-11-22] MEDS: temazepam 15mg capsule PO SCH (20:51)
[2021-11-22] MEDS: insulin glargine (Lantus) pen - multi-dose SQ SCH (21:13)
--- NOTE | 2021-11-22 23:30 | NUR ---
Patient's monitor alarming for desaturation to low 70s. Patient alert/oriented, laying in bed breathing in 30s. Good waveform noted on SPO2 monitor. Patient sits up to side of bed, desaturates to 60s with good waveform. Patient still alert/oriented and breathing in 30s with HR in 100s. FIO2 increased from 60% to 100%, SPO2 goes up to 95%. Patient assisted back to laying position. Will continue to monitor patient, will assess SPO2 to decrease FIO2 as tolerated.
--- NOTE | 2021-11-22 23:30 | NUR ---
Physical assessment reviewed, agree with documentation.
[2021-11-23] VITALS (24 sets, daily range): BP systolic 96–144; BP diastolic 50–72
[2021-11-23] MEDS: piperacillin/tazo 3.375gm/50ml 50 ML IV SCH ×3 (00:48→15:48)
[2021-11-23 03:01] LABS: ABG BASE EXCESS 7.1 mmol/L (-2.0-2.0); ABG HCO3 34.4 mmol/L (22.0-26.0); ABG OXYGEN SATURATION 95.4 % (94-97); ABG PO2 (T) 75.7 mmHg (75.0-100.0); ALLEN'S TEST POSITIVE; FCOHb 0.6 % (0.0-3.9); FLOW 60 L/min; FMetHb 0.2 % (0.0-1.5); FO2Hb 94.6 % (94-97); PATIENT TEMPERATURE 36.3; TOTAL HEMOGLOBIN 13.4 G/dl (14.0-18.0)
[2021-11-23 03:55] LABS: BASOPHILS % (AUTO) 0.2 % (0-1); EOSINOPHILS % (AUTO) 0 % (0-6); HEMATOCRIT 38.2 % (42.0-52.0); HEMOGLOBIN 12.2 g/dl (14.0-17.9); LYMPHOCYTES # (AUTO) 0.8 X10'3 (1.1-4.8); LYMPHOCYTES % (AUTO) 5.2 % (21-51); MEAN CORPUSCULAR HEMOGLOBIN 29.3 PG (27.0-31.0); MEAN CORPUSCULAR HGB CONC 31.8 g/dL (33.0-36.5); MEAN PLATELET VOLUME 8.6 FL (7.4-10.4); MONOCYTES # (AUTO) 0.6 X10'3 (0-0.9); MONOCYTES % (AUTO) 4.2 % (2-12); NEUTROPHILS # (AUTO) 13.4 X10'3 (1.8-7.7); NEUTROPHILS % (AUTO) 90.4 % (42-75); PLATELET COUNT 408 X10'3 (140-440); RED BLOOD COUNT 4.15 X10'6 (4.70-6.10); RED CELL DISTRIBUTION WIDTH 16.6 % (11.5-14.5); WHITE BLOOD COUNT 14.9 X10'3 (4.5-11.0)
[2021-11-23 04:15] LABS: ALANINE AMINOTRANSFERASE 33 U/L (12-78); ALBUMIN 2.3 G/DL (3.4-5.0); ALBUMIN/GLOBULIN RATIO 0.7 (1.1-1.5); ANION GAP 8 (8-16); ASPARTATE AMINO TRANSFERASE 14 U/L (10-37); BILIRUBIN,TOTAL 0.2 MG/DL (0.1-1.0); BLOOD UREA NITROGEN 22 MG/DL (7-18); BUN/CREATININE RATIO 41.5 (5.4-32.0); CALCIUM 8.5 MG/DL (8.5-10.1); CHLORIDE 101 MMOL/L (99-107); CREATININE 0.53 MG/DL (0.60-1.10); GLUCOSE 241 MG/DL (70-104); POTASSIUM 4.4 MMOL/L (3.5-5.1); SODIUM 141 MMOL/L (135-145); TOTAL CARBON DIOXIDE 32.5 MMOL/L (24-32); TOTAL PROTEIN 5.5 G/DL (6.4-8.2); eGFR > 90 ML/MIN
[2021-11-23] MEDS ORDERED: ALPRAZolam 0.25mg tablet PO ONE (04:55)
--- NOTE | 2021-11-23 06:15 | NUR ---
Problems reprioritized. Patient report given to Saadia BALBUENA with Jessica BALBUENA, questions answered & plan of care reviewed with .
[2021-11-23] MEDS: ipratropium/albuterol 3ml nebule NEB SCH ×5 (07:03→22:45)
[2021-11-23] MEDS: gabapentin 300mg capsule PO SCH ×3 (07:57→20:18)
[2021-11-23] MEDS: pantoprazole 40mg Tablet.DR PO SCH (07:57)
[2021-11-23] MEDS: guaiFENesin ER 600mg tablet PO SCH ×2 (07:58→20:19)
[2021-11-23] MEDS: K and/or MAG REPLACEMENT MC SCH ×2 (08:00→20:00)
[2021-11-23] MEDS: methylPREDNISolone sod succ 125mg/2ml vial IV SCH ×2 (08:01→20:17)
[2021-11-23] MEDS: enoxaparin 60mg/0.6ml syringe SUBCUT SCH ×2 (08:06→20:18)
[2021-11-23] MEDS: enoxaparin 30mg/0.3ml syringe SUBCUT SCH ×2 (08:07→20:18)
[2021-11-23] MEDS: insulin Lispro (HumaLOG) vial - multi-dose SQ SCH ×4 (08:19→19:21)
[2021-11-23] MEDS: traMADol 50MG tablet PO PRN (13:30)
--- NOTE | 2021-11-23 18:20 | NUR ---
Patient in room ICU 2039. I have received report from Saadia BALBUENA with Jessica BALBUENA and had the opportunity to ask questions and assume patient care.
[2021-11-23] MEDS: ibuprofen tablet 400 MG TABLET PO PRN (20:18)
[2021-11-23] MEDS: temazepam 15mg capsule PO SCH (20:19)
[2021-11-23] MEDS: salt irrigation nasal spray 45 ML SPRAY NS PRN (20:24)
[2021-11-23] MEDS: guaiFENesin/DM 10ml UD oral syrup PO PRN (21:22)
[2021-11-23] MEDS: insulin glargine (Lantus) pen - multi-dose SQ SCH (21:24)
[2021-11-24] VITALS (17 sets, daily range): BP systolic 110–148; BP diastolic 55–90
[2021-11-24] MEDS: piperacillin/tazo 3.375gm/50ml 50 ML IV SCH ×3 (00:52→16:02)
[2021-11-24 02:21] LABS: BASOPHILS # (AUTO) 0.1 X10'3 (0-0.2); BASOPHILS % (AUTO) 0.4 % (0-1); EOSINOPHILS % (AUTO) 0.1 % (0-6); HEMATOCRIT 37.5 % (42.0-52.0); HEMOGLOBIN 11.9 g/dl (14.0-17.9); LYMPHOCYTES # (AUTO) 0.6 X10'3 (1.1-4.8); LYMPHOCYTES % (AUTO) 4.8 % (21-51); MEAN CORPUSCULAR HEMOGLOBIN 29.3 PG (27.0-31.0); MEAN CORPUSCULAR HGB CONC 31.8 g/dL (33.0-36.5); MEAN CORPUSCULAR VOLUME 92.1 FL (78-98); MEAN PLATELET VOLUME 8.4 FL (7.4-10.4); MONOCYTES # (AUTO) 0.3 X10'3 (0-0.9); MONOCYTES % (AUTO) 2.3 % (2-12); NEUTROPHILS # (AUTO) 11.9 X10'3 (1.8-7.7); NEUTROPHILS % (AUTO) 92.4 % (42-75); PLATELET COUNT 379 X10'3 (140-440); RED BLOOD COUNT 4.07 X10'6 (4.70-6.10); RED CELL DISTRIBUTION WIDTH 16.5 % (11.5-14.5); WHITE BLOOD COUNT 12.9 X10'3 (4.5-11.0)
--- NOTE | 2021-11-24 02:40 | NUR ---
I have reviewed and agree with all interventions, assessments performed and documented by Michelle BALBUENA.
[2021-11-24 02:55] LABS: ALANINE AMINOTRANSFERASE 34 U/L (12-78); ALBUMIN 2.3 G/DL (3.4-5.0); ALBUMIN/GLOBULIN RATIO 0.7 (1.1-1.5); ALKALINE PHOSPHATASE 95 IU/L (46-116); ANION GAP 6 (8-16); ASPARTATE AMINO TRANSFERASE 23 U/L (10-37); BILIRUBIN,TOTAL 0.1 MG/DL (0.1-1.0); BLOOD UREA NITROGEN 21 MG/DL (7-18); BUN/CREATININE RATIO 33.3 (5.4-32.0); CALCIUM 8.2 MG/DL (8.5-10.1); CHLORIDE 104 MMOL/L (99-107); CREATININE 0.63 MG/DL (0.60-1.10); GLUCOSE 210 MG/DL (70-104); SODIUM 143 MMOL/L (135-145); TOTAL PROTEIN 5.4 G/DL (6.4-8.2); eGFR > 90 ML/MIN
[2021-11-24] MEDS ORDERED: tPA-cathflo 2 MG/2 ml IV flush IVF ONE (04:25)
[2021-11-24] MEDS: ipratropium/albuterol 3ml nebule NEB SCH ×2 (07:00→13:47)
[2021-11-24] MEDS: K and/or MAG REPLACEMENT MC SCH (08:00)
[2021-11-24] MEDS: gabapentin 300mg capsule PO SCH ×2 (08:33→12:45)
[2021-11-24] MEDS: guaiFENesin ER 600mg tablet PO SCH (08:33)
[2021-11-24] MEDS: enoxaparin 30mg/0.3ml syringe SUBCUT SCH (08:33)
[2021-11-24] MEDS: enoxaparin 60mg/0.6ml syringe SUBCUT SCH (08:34)
[2021-11-24] MEDS: pantoprazole 40mg Tablet.DR PO SCH (08:34)
[2021-11-24] MEDS: methylPREDNISolone sod succ 125mg/2ml vial IV SCH (08:35)
[2021-11-24] MEDS: insulin Lispro (HumaLOG) vial - multi-dose SQ SCH ×2 (08:40→12:58)
[2021-11-24] MEDS: guaiFENesin/DM 10ml UD oral syrup PO PRN (13:50)
[2021-11-24] MEDS: ibuprofen tablet 400 MG TABLET PO PRN (13:50)
--- NOTE | 2021-11-24 13:51 | NUR ---
therapist not available for [phone] svn
== END 2021-11-24 18:00 | DRG 175 ==
LOC: ER 15:41 → PCU 3S 21:45 → UNDOADMIN 21:45 → ICU 2S 11-15 08:56
PROVIDERS: ADMIT Internal Medicine; ATTEND Family Medicine
PROC: 5A0935A Assistance with Respiratory Ventilation, Less than 24 Consecutive Hours, High Flow/Velocity Cannula (ICD-10-PCS; 2021-11-09)
PROC: B32T1ZZ Computerized Tomography (CT Scan) of Left Pulmonary Artery using Low Osmolar Contrast (ICD-10-PCS; 2021-11-09)
PROC: B3201ZZ Computerized Tomography (CT Scan) of Thoracic Aorta using Low Osmolar Contrast (ICD-10-PCS; 2021-11-09)
PROC: B32S1ZZ Computerized Tomography (CT Scan) of Right Pulmonary Artery using Low Osmolar Contrast (ICD-10-PCS; 2021-11-09)
PROC: 5A0935A Assistance with Respiratory Ventilation, Less than 24 Consecutive Hours, High Flow/Velocity Cannula (ICD-10-PCS; 2021-11-10)
PROC: 5A0935A Assistance with Respiratory Ventilation, Less than 24 Consecutive Hours, High Flow/Velocity Cannula (ICD-10-PCS; 2021-11-11)
PROC: 5A0935A Assistance with Respiratory Ventilation, Less than 24 Consecutive Hours, High Flow/Velocity Cannula (ICD-10-PCS; 2021-11-12)
PROC: 5A09357 Assistance with Respiratory Ventilation, Less than 24 Consecutive Hours, Continuous Positive Airway Pressure (ICD-10-PCS; 2021-11-14)
PROC: 5A0935A Assistance with Respiratory Ventilation, Less than 24 Consecutive Hours, High Flow/Velocity Cannula (ICD-10-PCS; 2021-11-15)
PROC: 5A09457 Assistance with Respiratory Ventilation, 24-96 Consecutive Hours, Continuous Positive Airway Pressure (ICD-10-PCS; 2021-11-15)
PROC: 02HV33Z Insertion of Infusion Device into Superior Vena Cava, Percutaneous Approach (ICD-10-PCS; 2021-11-15)
PROC: B548ZZA Ultrasonography of Superior Vena Cava, Guidance (ICD-10-PCS; 2021-11-15)
PROC: 5A0955A Assistance with Respiratory Ventilation, Greater than 96 Consecutive Hours, High Flow/Velocity Cannula (ICD-10-PCS; principal; 2021-11-17)
DX: I26.99 Other pulmonary embolism without acute cor pulmonale (principal); J15.9 Unspecified bacterial pneumonia; J80 Acute respiratory distress syndrome; N17.0 Acute kidney failure with tubular necrosis; G93.41 Metabolic encephalopathy; J44.1 Chronic obstructive pulmonary disease with (acute) exacerbation; J44.0 Chronic obstructive pulmonary disease with (acute) lower respiratory infection; Z60.2 Problems related to living alone; R73.9 Hyperglycemia, unspecified; D75.838 Other thrombocytosis; D63.8 Anemia in other chronic diseases classified elsewhere; F17.210 Nicotine dependence, cigarettes, uncomplicated; Z20.822 Contact with and (suspected) exposure to COVID-19; F15.90 Other stimulant use, unspecified, uncomplicated; I95.9 Hypotension, unspecified; R45.1 Restlessness and agitation; Z59.00 Homelessness unspecified; Z71.6 Tobacco abuse counseling; Z71.51 Drug abuse counseling and surveillance of drug abuser
CPT/HCPCS: 36415; 36569; 36600; 71045; 71250; 71275; 76942; 80048; 80053; 80202; 81001; 81003; 82803; 82948; 83036; 83605; 83735; 83880; 84100; 84132; 84145; 84484; 85018; 85025; 85379; 85610; 85730; 87040; 87081; 87088; 87502; 87503; 87635; 93005; 93306; 93970; 94640; 94660; 94667; 94668; 94760; 96365; 97110; 97161; 97530; 99285; C9113; C9803; G0378; J0456; J0696; J1170; J1200; J1630; J1644; J1650; J1815; J1940; J2020; J2060; J2543; J2930; J2997; J3370; J3490; J7030; J7040; J7120; Q9967

== ENCOUNTER 2022-01-10 12:58 | Emergency (ER) | payer MEDICARE ==
[~2022-01-10] VITALS: Ht 175.3 cm; Wt 90.9 kg
[~2022-01-10 12:58] MED LIST: NO HOME MEDS
[2022-01-10] MEDS ORDERED: risperiDONE 2mg tablet PO ONE (13:10)
[2022-01-10 13:29] LABS: BASOPHILS # (AUTO) 0.1 X10'3 (0-0.2); BASOPHILS % (AUTO) 0.8 % (0-1); EOSINOPHILS # (AUTO) 0.2 X10'3 (0-0.9); EOSINOPHILS % (AUTO) 2.6 % (0-6); HEMATOCRIT 43.3 % (42.0-52.0); HEMOGLOBIN 14.1 g/dl (14.0-17.9); LYMPHOCYTES # (AUTO) 2.9 X10'3 (1.1-4.8); LYMPHOCYTES % (AUTO) 30.8 % (21-51); MEAN CORPUSCULAR HEMOGLOBIN 29.1 PG (27.0-31.0); MEAN CORPUSCULAR HGB CONC 32.4 g/dL (33.0-36.5); MEAN CORPUSCULAR VOLUME 89.7 FL (78-98); MEAN PLATELET VOLUME 8.3 FL (7.4-10.4); MONOCYTES # (AUTO) 0.8 X10'3 (0-0.9); NEUTROPHILS # (AUTO) 5.5 X10'3 (1.8-7.7); NEUTROPHILS % (AUTO) 57.8 % (42-75); PLATELET COUNT 343 X10'3 (140-440); RED BLOOD COUNT 4.83 X10'6 (4.70-6.10); RED CELL DISTRIBUTION WIDTH 18.4 % (11.5-14.5); WHITE BLOOD COUNT 9.6 X10'3 (4.5-11.0)
[2022-01-10 13:51] LABS: ALANINE AMINOTRANSFERASE 36 U/L (12-78); ALBUMIN 3.8 G/DL (3.4-5.0); ALBUMIN/GLOBULIN RATIO 0.9 (1.1-1.5); ALKALINE PHOSPHATASE 80 IU/L (46-116); ANION GAP 9 (8-16); ASPARTATE AMINO TRANSFERASE 26 U/L (10-37); BILIRUBIN,TOTAL 0.5 MG/DL (0.1-1.0); BLOOD UREA NITROGEN 6 MG/DL (7-18); BUN/CREATININE RATIO 8.6 (5.4-32.0); CALCIUM 8.5 MG/DL (8.5-10.1); CHLORIDE 103 MMOL/L (99-107); GLUCOSE 102 MG/DL (70-104); SODIUM 142 MMOL/L (135-145); TOTAL CARBON DIOXIDE 29.8 MMOL/L (24-32); eGFR > 90 ML/MIN
--- NOTE | 2022-01-10 14:04 | NUR ---
pt denies being suicidal but says he wants to kill negra for doing this to him
[2022-01-10 14:06] VITALS: BP 181/109
== END 2022-01-10 15:24 | disposition home or self-care (01) ==
LOC: ER 12:58
DX: R06.02 Shortness of breath (principal); F15.90 Other stimulant use, unspecified, uncomplicated; Z72.89 Other problems related to lifestyle; Z60.2 Problems related to living alone
CPT/HCPCS: 36415; 71045; 80053; 83880; 84443; 84484; 85025; 93005; 99285

== ENCOUNTER 2022-02-23 10:44 | Emergency (ER) | payer MEDICARE ==
[~2022-02-23] VITALS: Ht 172.7 cm; Wt 90.9 kg
[2022-02-23 10:58] VITALS: BP 137/83
[2022-02-23] MEDS ORDERED: erythromycin ophthalmic ointment 1gm tube RIGHTEYE ONE (11:25)
== END 2022-02-23 11:57 | disposition home or self-care (01) ==
LOC: ER 10:45
DX: H57.11 Ocular pain, right eye (principal); F15.90 Other stimulant use, unspecified, uncomplicated; Z72.89 Other problems related to lifestyle; Z60.2 Problems related to living alone
CPT/HCPCS: 99283

== ENCOUNTER 2022-03-06 19:46 | Inpatient (IN) | payer MEDICARE ==
[~2022-03-06] VITALS: Ht 172.7 cm; Wt 95.5 kg
[2022-03-06 20:22] LABS: BASOPHILS # (AUTO) 0.1 X10'3 (0-0.2); BASOPHILS % (AUTO) 0.7 % (0-1); EOSINOPHILS # (AUTO) 0.1 X10'3 (0-0.9); EOSINOPHILS % (AUTO) 0.5 % (0-6); HEMATOCRIT 36.5 % (42.0-52.0); HEMOGLOBIN 11.9 g/dl (14.0-17.9); LYMPHOCYTES # (AUTO) 1.8 X10'3 (1.1-4.8); LYMPHOCYTES % (AUTO) 15.4 % (21-51); MEAN CORPUSCULAR HEMOGLOBIN 28.6 PG (27.0-31.0); MEAN CORPUSCULAR HGB CONC 32.7 g/dL (33.0-36.5); MEAN CORPUSCULAR VOLUME 87.4 FL (78-98); MONOCYTES # (AUTO) 1.7 X10'3 (0-0.9); NEUTROPHILS # (AUTO) 7.9 X10'3 (1.8-7.7); NEUTROPHILS % (AUTO) 68.4 % (42-75); PLATELET COUNT 371 X10'3 (140-440); RED BLOOD COUNT 4.17 X10'6 (4.70-6.10); RED CELL DISTRIBUTION WIDTH 16.4 % (11.5-14.5); WHITE BLOOD COUNT 11.5 X10'3 (4.5-11.0)
[2022-03-06 20:33] LABS: ALANINE AMINOTRANSFERASE 40 U/L (12-78); ALBUMIN 2.7 G/DL (3.4-5.0); ALBUMIN/GLOBULIN RATIO 0.5 (1.1-1.5); ALKALINE PHOSPHATASE 118 IU/L (46-116); ANION GAP 8 (8-16); ASPARTATE AMINO TRANSFERASE 25 U/L (10-37); BILIRUBIN,TOTAL 0.2 MG/DL (0.1-1.0); BLOOD UREA NITROGEN 17 MG/DL (7-18); BUN/CREATININE RATIO 21.3 (5.4-32.0); CALCIUM 8.8 MG/DL (8.5-10.1); CHLORIDE 100 MMOL/L (99-107); GLUCOSE 202 MG/DL (70-104); SODIUM 136 MMOL/L (135-145); TOTAL CARBON DIOXIDE 28.2 MMOL/L (24-32); TOTAL PROTEIN 7.8 G/DL (6.4-8.2); eGFR > 90 ML/MIN
[2022-03-06] MEDS ORDERED: ketorolac trometh. 30mg/ml inj. IV ONE (20:50)
[2022-03-06] MEDS ORDERED: normal saline 1000ml 1,000 ML IV ONE (20:50)
[2022-03-06 21:10] LABS: PLATELET ESTIMATE NORMAL; TOTAL CELLS COUNTED 100
[2022-03-06 21:11] LABS: ANISOCYTOSIS 1+
[2022-03-06] MEDS ORDERED: acetaminophen 325mg tablet PO ONE (21:40)
[2022-03-06] MEDS ORDERED: ipratropium/albuterol 3ml nebule NEB ONE (23:15)
[2022-03-06] MEDS ORDERED: levoFLOXACIN-Levaquin 750MG/D5 150 ML IV ONE (23:15)
[2022-03-06] MEDS ORDERED: methylPREDNISolone sod succ 125mg/2ml vial IV ONE (23:15)
--- NOTE | 2022-03-06 23:38 | NUR ---
Patient to CT
--- NOTE | 2022-03-07 00:07 | NUR ---
Dr. Juan in with patient
[2022-03-07] MEDS ORDERED: magnesium Cl slow-release 64mg tablet PO PRN (00:10)
[2022-03-07] MEDS ORDERED: potassium CL 10mEq/100ml bag 100 ML IV PRN (00:10)
[2022-03-07] MEDS ORDERED: acetaminophen 325mg tablet PO PRN (00:10)
[2022-03-07] MEDS ORDERED: magnesium 2GM in 50ml NS 50 ML IV PRN (00:10)
[2022-03-07] MEDS ORDERED: magnesium hydroxide 30ml (MOM) UD suspension PO PRN (00:10)
[2022-03-07] MEDS ORDERED: mag hydrox/Alum hydrox/simeth 30ml oral suspension PO PRN (00:10)
[2022-03-07] MEDS ORDERED: ondansetron/PF 4mg/2ml inj IV PRN (00:10)
[2022-03-07] MEDS ORDERED: magnesium 4gm in 100ml NS 100 ML IV PRN (00:10)
[2022-03-07] MEDS ORDERED: POTASSIUM BICARB 20meq eff tab 20 MEQ TABLET.EFF PO PRN ×2 (00:10)
[2022-03-07] MEDS: cefTRIAXone 1g/NS 100ml IVPB 100 ML IV SCH (01:15)
[2022-03-07] MEDS ORDERED: NO HOME MEDS (03:00)
[2022-03-07] MEDS: HYDROcodone/acetaminophen 5mg/325mg tablet PO PRN ×2 (06:48→19:41)
--- NOTE | 2022-03-07 06:52 | NUR ---
RT AT BEDSIDE.
[2022-03-07] MEDS: albuterol 2.5 MG/3 ML nebule NEB PRN ×2 (06:58→20:40)
[2022-03-07 07:22] LABS: MAGNESIUM 1.9 MG/DL (1.5-2.4); POTASSIUM 3.9 MMOL/L (3.5-5.1)
[2022-03-07] MEDS: K and/or MAG REPLACEMENT MC SCH ×2 (08:00→19:30)
[2022-03-07] MEDS: docusate sod 100mg capsule PO SCH ×2 (08:00→19:30)
[2022-03-07] MEDS: heparin, porcine 5000 units/ml vial SQ SCH ×2 (08:47→19:30)
[2022-03-07] MEDS: methylPREDNISolone sod succ 125mg/2ml vial IV SCH ×2 (08:48→19:29)
[2022-03-07] MEDS: azithromycin/NS 500mg/250ml 250 ML IV SCH (11:36)
[2022-03-07 18:00] VITALS: BP 126/73
[2022-03-07 22:00] VITALS: BP 118/71
[2022-03-08 02:00] VITALS: BP 140/77
[2022-03-08 06:00] VITALS: BP 141/87
[2022-03-08 06:25] LABS: BASOPHILS % (AUTO) 0.3 % (0-1); EOSINOPHILS % (AUTO) 0 % (0-6); HEMATOCRIT 36.1 % (42.0-52.0); LYMPHOCYTES # (AUTO) 1.6 X10'3 (1.1-4.8); LYMPHOCYTES % (AUTO) 12.2 % (21-51); MEAN CORPUSCULAR HEMOGLOBIN 28.9 PG (27.0-31.0); MEAN CORPUSCULAR HGB CONC 33.3 g/dL (33.0-36.5); MEAN CORPUSCULAR VOLUME 86.8 FL (78-98); MEAN PLATELET VOLUME 8.2 FL (7.4-10.4); MONOCYTES # (AUTO) 1.2 X10'3 (0-0.9); MONOCYTES % (AUTO) 8.7 % (2-12); NEUTROPHILS # (AUTO) 10.4 X10'3 (1.8-7.7); NEUTROPHILS % (AUTO) 78.8 % (42-75); PLATELET COUNT 418 X10'3 (140-440); RED BLOOD COUNT 4.15 X10'6 (4.70-6.10); RED CELL DISTRIBUTION WIDTH 16.1 % (11.5-14.5); WHITE BLOOD COUNT 13.2 X10'3 (4.5-11.0)
[2022-03-08 06:43] LABS: ALANINE AMINOTRANSFERASE 26 U/L (12-78); ALBUMIN 2.5 G/DL (3.4-5.0); ALBUMIN/GLOBULIN RATIO 0.5 (1.1-1.5); ALKALINE PHOSPHATASE 104 IU/L (46-116); ANION GAP 4 (8-16); ASPARTATE AMINO TRANSFERASE 15 U/L (10-37); BLOOD UREA NITROGEN 14 MG/DL (7-18); BUN/CREATININE RATIO 19.7 (5.4-32.0); CALCIUM 9.3 MG/DL (8.5-10.1); CHLORIDE 103 MMOL/L (99-107); CREATININE 0.71 MG/DL (0.60-1.10); GLUCOSE 177 MG/DL (70-104); POTASSIUM 4.2 MMOL/L (3.5-5.1); SODIUM 138 MMOL/L (135-145); TOTAL CARBON DIOXIDE 30.8 MMOL/L (24-32); TOTAL PROTEIN 7.5 G/DL (6.4-8.2); eGFR > 90 ML/MIN
--- NOTE | 2022-03-08 07:26 | NUR ---
Patient in room PCU 3024. I have received report from SREE RENE, and had the opportunity to ask questions and assume patient care.
[2022-03-08 07:36] LABS: BILIRUBIN,TOTAL 0.1 MG/DL (0.1-1.0)
[2022-03-08] MEDS: cefTRIAXone 1g/NS 100ml IVPB 100 ML IV SCH (07:44)
[2022-03-08] MEDS: methylPREDNISolone sod succ 125mg/2ml vial IV SCH (07:45)
[2022-03-08] MEDS: docusate sod 100mg capsule PO SCH (07:46)
[2022-03-08] MEDS: heparin, porcine 5000 units/ml vial SQ SCH (07:46)
[2022-03-08] MEDS: K and/or MAG REPLACEMENT MC SCH (07:56)
[2022-03-08] MEDS: azithromycin/NS 500mg/250ml 250 ML IV SCH (08:39)
[2022-03-08] MEDS ORDERED: PRED10TA23 PO (10:28)
[2022-03-08] MEDS ORDERED: LEVO500T90 PO (10:28)
[2022-03-08] MEDS ORDERED: FURO20TA4 PO (10:28)
[2022-03-08 11:00] VITALS: BP 122/69
--- NOTE | 2022-03-08 12:44 | NUR ---
PT STABLE FOR DISCHARGE PER MD. DISCHARGE AND FOLLOW INSTRUCTIONS REVIEWED WITH PT. TELE BOX REMOVED. PIV REMOVED WITH TIP INTACT. BELONGINGS SENT WITH PT INCLUDING 1 O2 TANK. PT TAKEN TO LOBBY BY HOSPITAL STAFF. PT TO BE TRANSFERRED TO [facility].
== END 2022-03-08 12:01 | disposition home or self-care (01) | DRG 189 ==
LOC: ER 19:46 → ED HOLD 03-07 00:14 → PCU 3S 03-07 13:00
PROVIDERS: ADMIT Internal Medicine; ATTEND Internal Medicine
DX: J96.20 Acute and chronic respiratory failure, unspecified whether with hypoxia or hypercapnia (principal); J98.01 Acute bronchospasm; Z20.822 Contact with and (suspected) exposure to COVID-19; Z60.2 Problems related to living alone; F15.90 Other stimulant use, unspecified, uncomplicated; Z63.8 Other specified problems related to primary support group; Z87.891 Personal history of nicotine dependence; Z86.16 Personal history of COVID-19
CPT/HCPCS: 36415; 70450; 71045; 80053; 82948; 83605; 83735; 83880; 84132; 84145; 84484; 85007; 85025; 87040; 87502; 87503; 87635; 93005; 94640; 94664; 94760; 96361; 96374; 96375; 99285; A4615; C9803; G0378; J0456; J0696; J1644; J1885; J1956; J2930; J7030; J7040